=== PATIENT | male | born 1945 | race African-American/Black ===

== ENCOUNTER 2017-04-18 21:39 | Emergency (ER) | payer MEDICARE ==
[2017-04-19 00:09] LABS: Bilirubin Negative (Negative); Blood, Urine Negative (Negative); Glucose, Urine (Dipstick) Negative (Negative); Ketone, Urine Negative (Negative); Nitrite Negative (Negative); Protein, Urine (Dipstick) Negative (Neg-Trace); Urobilinogen 0.2 mg/dL (0.2-1.0)
== END 2017-04-19 01:29 ==
LOC: ERS 21:39
DX: R45.1 Restlessness and agitation (principal); R33.9 Retention of urine, unspecified; Z79.899 Other long term (current) drug therapy
CPT/HCPCS: 51702; 81003; 87086

== ENCOUNTER 2018-05-24 10:19 | Emergency (ER) | payer MEDICARE, MEDICAID ==
[2018-05-24 12:39] LABS: INR-International Normal Ratio 0.9; PTT 25.7 SEC (22.9-36.1); Prothrombin Time 12.5 SEC (12.0-14.7)
--- NOTE | 2018-05-24 12:40 | RAD ---
RADIOGRAPH CHEST 1 VIEW: HISTORY: Preoperative evaluation for 72-year-old male. FINDINGS: There are no air space densities, pulmonary edema, pneumothorax, or cardiomegaly. The lateral costop hrenic angles are sharp. IMPRESSION: No acute cardiopulmonary findings. oneil [] POS: LEOLA
--- NOTE | 2018-05-24 12:40 | RAD ---
AP PELVIS LEFT HIP 2 VIEWS: Date: 05/24/18 HISTORY: Fall, left hip pain. FINDINGS/IMPRESSION: There are postop changes and metallic hardware in the right proximal femur. There is suggestion of a fracture involving the left greater trochanter. POS: LEOLA
--- NOTE | 2018-05-24 12:41 | RAD ---
RADIOGRAPH LEFT WRIST 3 VIEWS: Date: 05/24/18 Time: 1124 hours HISTORY: 72-year-old male status post acute traumatic injury to the left hand from fall. FINDINGS: No displaced fracture is identified. There is diffuse osteopenia, which could mask a nondisplaced fra cture. Alignment is normal. If there is snuffbox tenderness that suggests an occult scaphoid fracture , then the general recommendation is immobilization and follow-up imaging in 5-10 days. Degenerative changes are minimal/mild. IMPRESSION: No fracture identified. POS: LEOLA
[2018-05-24 12:54] LABS: ALT (SGPT) 21 U/L (8-55); AST (SGOT) 50 U/L (5-34); Albumin 3.7 g/dL (3.4-4.8); Alcohol 234 mg/dL (Less than 10); Alkaline Phosphatase 42 U/L (40-150); Anion Gap 24 mmol/L (10-20); BUN (Urea Nitrogen) 10 mg/dL (8.4-25.7); Bilirubin, Total 0.5 mg/dL (0.2-1.2); Calc. Creatinine Clearance 0 mL/min (70-130); Calcium 8.8 mg/dL (7.8-10.44); Carbon Dioxide 19 mmol/L (23-31); Chloride 100 mmol/L (98-107); Estimated GFR-MDRD Greater than 90; Globulin 3.7 g/dL (2.4-3.5); Glucose 64 mg/dL (83-110); Potassium 4.1 mmol/L (3.5-5.1); Protein, Total 7.4 g/dL (5.8-8.1); Sodium 139 mmol/L (136-145)
[2018-05-24 12:55] LABS: #Lymphocytes 1.4 thou/uL (1.20-3.40); #Monocytes 0.3 thou/uL (0.11-0.59); #Neutrophils 4.4 thou/uL (1.40-6.50); %Basophils 0.5 % (0.0-1.0); %Eosinophils 0.7 % (0.0-10.0); %Lymphocytes 22.8 % (21.0-51.0); %Monocytes 5.5 % (0.0-10.0); %Neutrophils 70.6 % (42.0-75.0); Hemoglobin 12.1 g/dL (14.0-18.0); Mean Corpuscular HGB CONC 31.3 g/dL (32.0-36.0); Mean Corpuscular Hemoglobin 26.7 pg (27.0-31.0); Mean Corpuscular Volume 85.3 fL (78.0-98.0); Mean Platelet Volume 9.6 fL (7.4-10.4); Platelet Count 147 thou/uL (130-400); RBC Distribution Width 13.1 % (11.5-14.5); Red Blood Cell (RBC) Count 4.53 mill/uL (4.70-6.10); White Blood Cell (WBC) Count 6.2 thou/uL (4.8-10.8)
[2018-05-24] MEDS ORDERED: traMADol HCl 50 MG TAB ONE (13:50)
--- NOTE | 2018-05-24 14:26 | CT ---
CT PELVIS NONCONTRAST: Date: 05/24/18 HISTORY: 72-year-old male with traumatic left hip pain due to fall. FINDINGS: There is no acute fracture or dislocation. There is a Cisneros type dynamic compression screw fixatin g an old right intertrochanteric fracture. No high grade DJD of the bilateral hips or bilateral SI moriah ints. Urinary bladder is very distended, with the bladder dome extending slightly superior to the lev el of the umbilicus. No free fluid within the pelvic cavity. No extrapelvic hematoma. Diffuse osteope yessica. Disc bulges at L4-5 and L5-S1 without severe disc space narrowing. IMPRESSION: 1. No acute fracture. 2. Distended urinary bladder. 3. Dynamic compression screw fixating an old right intertrochanteric fracture. POS: LEOLA
== END 2018-05-24 13:58 | disposition home or self-care (01) ==
LOC: ERS 10:19
DX: S72.115A Nondisplaced fracture of greater trochanter of left femur, initial encounter for closed fracture (principal); J45.909 Unspecified asthma, uncomplicated; Z86.711 Personal history of pulmonary embolism; W18.30XA Fall on same level, unspecified, initial encounter
CPT/HCPCS: 36415; 71045; 72170; 72192; 80053; 80307; 85025; 85610; 85730; 86850; 86900; 86901; 93005

== ENCOUNTER 2019-10-12 13:34 | Emergency (ER) | payer MEDICAID, MEDICARE ==
[~2019-10-12 13:34] MED LIST: Iopamidol-370 76% 500 ML 1 ML ONE
[2019-10-12 14:15] LABS: #Eosinphils 0.2 thou/uL (0.0-0.7); #Lymphocytes 2.1 thou/uL (1.20-3.40); #Monocytes 0.4 thou/uL (0.11-0.59); #Neutrophils 3.5 thou/uL (1.40-6.50); %Basophils 0.7 % (0.0-1.0); %Eosinophils 3.6 % (0.0-10.0); %Lymphocytes 33.3 % (21.0-51.0); %Monocytes 6.5 % (0.0-10.0); %Neutrophils 55.8 % (42.0-75.0); Hemoglobin 12.9 g/dL (14.0-18.0); Mean Corpuscular HGB CONC 32.7 g/dL (32.0-36.0); Mean Corpuscular Volume 82.5 fL (78.0-98.0); Platelet Count 259 thou/uL (130-400); Red Blood Cell (RBC) Count 4.78 mill/uL (4.70-6.10); White Blood Cell (WBC) Count 6.3 thou/uL (4.8-10.8)
[2019-10-12 14:26] LABS: ALT (SGPT) 7 U/L (8-55); AST (SGOT) 18 U/L (5-34); Albumin 3.6 g/dL (3.4-4.8); Alkaline Phosphatase 122 U/L (40-110); Anion Gap 23 mmol/L (10-20); BUN (Urea Nitrogen) 18 mg/dL (8.4-25.7); Bilirubin, Total 0.6 mg/dL (0.2-1.2); Calc. Creatinine Clearance 0 mL/min (70-130); Calcium 9.5 mg/dL (7.8-10.44); Carbon Dioxide 19 mmol/L (23-31); Chloride 98 mmol/L (98-107); Estimated GFR-MDRD Greater than 90; Globulin 4.9 g/dL (2.4-3.5); Magnesium 1.8 mg/dL (1.6-2.6); Potassium 4.1 mmol/L (3.5-5.1); Protein, Total 8.5 g/dL (5.8-8.1); Sodium 136 mmol/L (136-145)
--- NOTE | 2019-10-12 14:33 | RAD ---
CHEST ONE VIEW: 10/12/19 HISTORY: Fall. COMPARISON: Radiograph 05/24/18. FINDINGS: Multiple old right sided rib fractures. Abnormal subtle opacity left lung base. Scarring in the right lung base. No acute displaced rib fracture is appreciated. No pneumothorax. No significant effusion. IMPRESSION: 1. Abnormal opacity in the left lung base is somewhat linear in appearance to reflect scarring f rom prior infection/infarction from patient's known PE in 2017. Follow-up radiographs recommended. 2. Old right sided rib fractures. 3. Dilated pulmonary artery suggesting pulmonary hypertension. POS: HOME
[2019-10-12 14:37] LABS: Glucose 58 mg/dL (83-110)
[2019-10-12] MEDS ORDERED: Dextrose 50% Abboject 50 ML SYRINGE ONE (14:38)
[2019-10-12 14:49] LABS: Base Excess-Venous -2.8 mmol/L (-2.0 to 3.0); CO2 Tension (PvCO2) 25.4 mmHg (40.0-50.0); Calcium, Ionized 0.97 mmol/L (See Comments:); Chloride 103 mmol/L (98-107); Hemoglobin - Calc 14.3 g/dL (14.0-18.0); Potassium 3.9 mmol/L (3.5-5.1); Sodium 134 mmol/L (138-145); T. Carbon Dioxide 19.8 mmol/L (22.0-28.0); vO2 Saturation-calc 73.6 % (60.0-85.0)
[2019-10-12 15:11] LABS: CKMB 1.6 ng/mL (0-6.6)
--- NOTE | 2019-10-12 15:41 | CT ---
EXAM: CT ANGIOGRAM OF THE HEAD INDICATION: Altered mental status. Patient fell 2 weeks ago. COMPARISON: Noncontrast head CT 02/03/2017 TECHNIQUE: CT angiogram of the head are performed in the axial plane. Three-dimensional reformatted i mages are submitted for interpretation. FINDINGS: NONCONTRAST HEAD CT: Stable remote right frontotemporal extra-axial hematoma. No significant mass effect or midline shift. Stable postsurgical changes in the right calvarium. No acute parenchymal hemorrhage or extra-axial hematoma. Stable encephalomalacia involving the left and right frontal lobes. Remainder of the cerebr um demonstrates preservation of cortical watkins-white white matter differentiation. POSTCONTRAST CT OF BRAIN: Pathologic enhancement: No pathologic enhancement the brain. CTA OF THE BRAIN: Intracranial internal carotid arteries:Symmetric enhancement and luminal diameter of the intracranial internal carotid arteries. There is atherosclerosis involving both cavernous segments without significant luminal narrowing. Note, incomplete evaluation of the cervical carotid arteries. There is atherosclerosis involving both distal common carotid arteries, carotid bifurcation and internal carotid arteries. Limited evaluation on this examination. No evidence of high-grade stenosis based on NASCET criteria. There is tortuosity of both cervical internal carotid arteries. Anterior circulation: Appropriate enhancement and luminal diameter of the A1 and M1 segments. Proxima l A2 segments and proximal MCA branches have appropriate enhancement and luminal diameter. Small focal 2-3 mm outpouching near the terminus of the left internal carotid artery, best demonstrated on sagittal image 47 and 48 may represent a small infundibulum versus a small aneurysm. Intracranial vertebral arteries: Appropriate enhancement and luminal diameter. Bilateral PICA artery origins have appropriate enhancement and luminal diameter. No aneurysm. Posterior circulation: Both vertebral arteries supply normal caliber basilar artery. Bilateral P1 seg ments have appropriate enhancement and luminal diameter. IMPRESSION: 1. No significant vascular occlusion at the level [place]. 2. Questionable infundibulum versus small aneurysm close to the terminus of the left internal carotid artery. Conventional angiography can be performed, nonemergent. 3. Atherosclerosis involving both cervical carotid arteries, incompletely evaluated. 4. Chronic right frontotemporal extra-axial hematoma. Transcribed Date/Time: 10/12/2019 5:40 PM
[2019-10-12 16:52] LABS: Bacteria/HPF 4+ HPF (None Seen); Bilirubin Negative (Negative); Blood, Urine 2+ (Negative); Clarity Extra Turbid (Clear); Glucose, Urine (Dipstick) Normal (Negative); Leukocyte 500 Leu/uL (Negative); Nitrite Negative (Negative); Protein, Urine (Dipstick) 30 mg/dL (Neg-Trace); Urobilinogen Normal mg/dL (Less than 2); WBC/HPF Greater than 50 HPF (0-3)
[2019-10-12] MEDS ORDERED: cefTRIAXone\\ROCEPHIN 2 GM VIAL ONE (17:23)
--- NOTE | 2019-10-12 18:01 | RAD ---
EXAM: LUMBAR SPINE THREE VIEWS: 10/12/19 HISTORY: Fall two weeks ago. Pain. FINDINGS: Five lumbar type vertebrae. Mild loss of vertebral body height along the superior end plate of L4. Th ere is an associated concavity. No significant retropulsion. Atherosclerosis of the aorta is identifi ed. Contrast opacifies the urinary bladder. IMPRESSION: Mild compression fracture involving the superior end plate of L4. POS: PPP
--- NOTE | 2019-10-12 18:11 | RAD ---
TWO VIEWS RIGHT HIP: 10/12/19 PROVIDED CLINICAL HISTORY: Fall. FINDINGS: Comparison 05/24/18. Postoperative changes ORIF right hip redemonstrated, without evidence for hardware loosening and migr ation. No evidence for acute fracture. Right hip joint space is preserved. Vascular calcifications ar e seen. Contrast material is noted within the urinary bladder. IMPRESSION: No evidence for an acute osseous abnormality. If there is persistent clinical concern, conservative m anagement and follow-up imaging advised. POS: SANIA
[2019-10-12 19:53] LABS: Troponin I 0.017 ng/mL (< 0.028)
== END 2019-10-12 20:33 ==
LOC: ERS 13:34
DX: S32.049A Unspecified fracture of fourth lumbar vertebra, initial encounter for closed fracture (principal); N39.0 Urinary tract infection, site not specified; R53.1 Weakness; J45.909 Unspecified asthma, uncomplicated; Z79.51 Long term (current) use of inhaled steroids; W19.XXXA Unspecified fall, initial encounter
CPT/HCPCS: 36415; 36416; 51701; 70496; 71045; 72100; 80053; 81003; 81015; 82140; 82330; 82553; 82803; 83735; 84443; 84484; 85025; 93005; 96365; 96375; J0696; Q9967

== ENCOUNTER 2020-04-02 19:22 | Inpatient (IN) | payer MEDICARE, OTHER ==
--- NOTE | 2020-04-02 20:36 | RAD ---
CHEST ONE VIEW: Indication: History of syncope Comparison: 10-12-2019 FINDINGS: Chronic lung changes are stable appearing. Heart size within normal limits. No pleural effusion or pn eumothorax is evident. Sheet artifact over shadow the lung apices. No acute osseous abnormality is ev ident. IMPRESSION: No definite acute abnormality. POS: BH
--- NOTE | 2020-04-02 20:48 | CT ---
CT BRAIN NONCONTRAST: DATE: 04/02/2020 HISTORY: 74-year-old male with altered mental status FINDINGS: There is no evidence of acute intra-axial or extra-axial hemorrhage. There is no midline shift or any other mass effect. There is a broad, thin right frontal chronic subdural hematoma.. There is no evidence of obstructive hydrocephalus. Calvarium is intact. There is diffuse brain parenchymal volume loss. There are low attenuation areas in the white matter. These are nonspecific, but in a patient of this age, they are probably chronic ischemic white matter changes due to microvascular atheroscler osis. There is a small to moderate-sized patchy region of encephalomalacia and gliosis involving the right supraorbital anterior inferior frontal lobe parenchyma. There is an old right parietal bone sara hole slightly posterior to the right coronal suture. No interval change overall since 10/12/2019. IMPRESSION: 1) No acute intracranial findings. 2) involutional changes and chronic ischemic white matter changes. 3) small right frontal chronic subdural hematoma containing multifocal calcifications. 4) evidence for old, traumatic injury to right anterior inferior frontal lobe.
[2020-04-02 21:23] LABS: #Lymphocytes 1.6 thou/uL (1.20-3.40); #Monocytes 0.6 thou/uL (0.11-0.59); #Neutrophils 7.3 thou/uL (1.40-6.50); %Basophils 0.3 % (0.0-1.0); %Eosinophils 0.5 % (0.0-10.0); %Lymphocytes 16.8 % (21.0-51.0); %Monocytes 5.9 % (0.0-10.0); %Neutrophils 76.5 % (42.0-75.0); Hemoglobin 13.2 g/dL (14.0-18.0); Mean Corpuscular HGB CONC 31.3 g/dL (32.0-36.0); Mean Corpuscular Hemoglobin 26.5 pg (27.0-31.0); Mean Corpuscular Volume 84.6 fL (78.0-98.0); Mean Platelet Volume 9.4 fL (7.4-10.4); Platelet Count 182 thou/uL (130-400); RBC Distribution Width 14.7 % (11.5-14.5); Red Blood Cell (RBC) Count 4.99 mill/uL (4.70-6.10); White Blood Cell (WBC) Count 9.6 thou/uL (4.8-10.8)
[2020-04-02 21:29] LABS: ALT (SGPT) 10 U/L (8-55); AST (SGOT) 26 U/L (5-34); Albumin 3.9 g/dL (3.4-4.8); Alkaline Phosphatase 54 U/L (40-110); Anion Gap 25 mmol/L (10-20); BUN (Urea Nitrogen) 13 mg/dL (8.4-25.7); Bilirubin, Total 0.4 mg/dL (0.2-1.2); Calc. Creatinine Clearance 0 mL/min (70-130); Calcium 8.4 mg/dL (7.8-10.44); Carbon Dioxide 13 mmol/L (23-31); Chloride 100 mmol/L (98-107); Estimated GFR-MDRD Greater than 90; Glucose 111 mg/dL (83-110); Potassium 4.6 mmol/L (3.5-5.1); Protein, Total 7.9 g/dL (5.8-8.1); Sodium 133 mmol/L (136-145)
[2020-04-02 21:56] LABS: CKMB 4.1 ng/mL (0-6.6)
[2020-04-03 00:11] LABS: Hemoglobin A1c 4.6 % (4.0-6.0)
--- NOTE | 2020-04-03 00:14 | PDOC.HHP ---
Hospitalist HPI - History of Present Illness syncope History of Present Illness: Mr. Pond is a 74 year-old male with a PMHx of COPD, chronic subdural hematoma, cerebral brain anuerysm s/p clip, R hip fracture, and remote PE who presented to the ED for syncopal episode. Pt's reports that the pt was sitting watching TV when all of a sudden he became very drowsy and unresponsive. EMS noted a blood sugar <40 and administered glucose. Repeat blood sugar 110. Family notes patient has been wetting the bed over the past week. Pt denies chest pain, SOB, or palpitations. Denies prodrome. Denies weakness or numbness. No history of syncope or similar events. Pt denies history of diabetes, but reports he has not seen his PCP in over a year. Workup in the ED revealed EKG with no ischemic changes, indeterminate troponin of 0.126, Na of 133, K of 4.6, BUN/Cr 13, 0.72. BIcarb 13. H/H 13.2/42.2, WBC 9.6. Patient received 250 ml of D10 by EMS. Vitals 136/85, 96, 20, 97.6, 95% on RA. Hospitalist ROS - Review of Systems Constitutional: denies: fever, chills, sweats, weakness, malaise, other Eyes: denies: pain, vision change, conjunctivae inflammation, eyelid inflammation, redness, other ENT: denies: ear pain, ear discharge, nose pain, nose discharge, nose congestion, mouth pain, mouth swelling, throat pain, throat swelling, other Respiratory: denies: cough, dry, shortness of breath, hemoptysis, SOB with excertion, pleuritic pain, sputum, wheezing, other Cardiovascular: denies: chest pain, palpitations, orthopnea, paroxysmal noc. dyspnea, edema, light headedness, other Gastrointestinal: denies: nausea, vomiting, abdominal pain, diarrhea, constipation, melena, hematochezia, other Genitourinary: reports: frequency, incontinence. denies: dysuria, hematuria, retention, other Musculoskeletal: denies: neck pain, shoulder pain, arm pain, back pain, hand pain, leg pain, foot pain, other Skin: denies: rash, lesions, elizabeth, bruising, other Neurological: denies: weakness, numbness, incoordination, change in speech, confusion, seizures, other - Medication Medications: Home medications include: Folic acid Advair inhaler Amlodipine Pantoprazole Dulcolax Patient unsure of medications. Will need to confirm medications with family in morning. NKDA Hospitalist History - Past Medical History Cardiac: reports: HTN Pulmonary: reports: asthma, COPD, pulmonary embolism Gastrointestinal: reports: Constipation, GERD - Past Surgical History Other Surgical History: cerebral aneurysm s/p clip R hip fx s/p fixation - Family History Family History: reports: no pertinent history - Social History Smoking Status: Current every day smoker Tobacco Type: cigarettes Alcohol: reports: Heavy Drugs: reports: none Living Situation: With Family - Exam General Appearance: NAD, awake alert, ill appearing General - other findings: Cachectic Eye: PERRL, anicteric sclera ENT: normocephalic atraumatic, no oropharyngeal lesions, dry oral mucosa Neck: supple, symmetric, no JVD, no thyromegaly, no lymphadenopathy, no carotid bruit Heart: RRR, no murmur, no gallops, no rubs, normal peripheral pulses Respiratory: CTAB, no wheezes, no rales, no ronchi, normal chest expansion, no tachypnea, normal percussion Gastrointestinal: soft, non-tender, non-distended, normal bowel sounds, no hepatomegaly, no splenomegaly, no bruit Extremities: no cyanosis, no clubbing, no edema Skin: no lesions, no rashes, tenting Neurological: cranial nerve grossly intact, normal sensation to touch, no weakness, no focal deficits, no new deficit Musculoskeletal: generalized weakness, diffuse muscle atrophy Psychiatric: normal affect, normal behavior, oriented to person, oriented to place Psychiatric - other findings: Not able to tell me the month or year Hospitalist Results - Labs Result Diagrams: 04/02/20 20:57 04/02/20 23:40 Lab results: WBC 9.6 thou/uL (4.8-10.8) 04/02/20 20:57 Hgb 13.2 g/dL (14.0-18.0) L 04/02/20 20:57 Hct 42.2 % (42.0-52.0) 04/02/20 20:57 MCV 84.6 fL (78.0-98.0) 04/02/20 20:57 Plt Count 182 thou/uL (130-400) 04/02/20 20:57 Neutrophils % 76.5 % (42.0-75.0) H 04/02/20 20:57 Sodium 133 mmol/L (136-145) L 04/02/20 20:57 Potassium 4.6 mmol/L (3.5-5.1) 04/02/20 20:57 Chloride 100 mmol/L (98-107) 04/02/20 20:57 Carbon Dioxide 13 mmol/L (23-31) L 04/02/20 20:57 BUN 13 mg/dL (8.4-25.7) 04/02/20 20:57 Creatinine 0.72 mg/dL (0.7-1.3) 04/02/20 20:57 Glucose 111 mg/dL (83-110) H 04/02/20 20:57 Calcium 8.4 mg/dL (7.8-10.44) 04/02/20 20:57 Total Bilirubin 0.4 mg/dL (0.2-1.2) 04/02/20 20:57 AST 26 U/L (5-34) 04/02/20 20:57 ALT 10 U/L (8-55) 04/02/20 20:57 Alkaline Phosphatase 54 U/L (40-110) 04/02/20 20:57 CK-MB (CK-2) 4.1 ng/mL (0-6.6) 04/02/20 20:57 Troponin I 0.126 ng/mL (< 0.028) H 04/02/20 20:57 Serum Total Protein 7.9 g/dL (5.8-8.1) 04/02/20 20:57 Albumin 3.9 g/dL (3.4-4.8) 04/02/20 20:57 Hospitalist H&P A/P - Problem (1) Syncope Code(s): R55 - SYNCOPE AND COLLAPSE Status: Acute (2) Hypoglycemia Code(s): E16.2 - HYPOGLYCEMIA, UNSPECIFIED Status: Acute (3) ETOH abuse Code(s): F10.10 - ALCOHOL ABUSE, UNCOMPLICATED Status: Acute (4) HTN (hypertension) Code(s): I10 - ESSENTIAL (PRIMARY) HYPERTENSION Status: Chronic Qualifiers: Hypertension type: essential hypertension Qualified Code(s): I10 - Essential (primary) hypertension - Plan Plan: Syncope: 74M hx of COPD, brain aneurysm s/p coil, chronic subdural presents after a witness syncopal episode at home. Pt hypoglycemic to <40 by EMS. Recovered with glucose. Pt denies prodrome and is unable to remember events leading up to syncopal episode. Troponin indeterminate at 0.126. EKG NSR. CXR negative. Head CT showed no acute changes, but stable chronic subdural hematoma. Pt reports inability to hold urine and increased frequency. WBC 9.6, afebrile. VSS. Lactic acid elevated at 3.7, question seizure. PLAN: -Telemetry -Mg, Ca, Phos, TSH -Drug screen -Q4 neuro checks -UA, repeat lactic -Orthostatics Hypoglycemia: Hypoglycemic to <40 found by EMS with syncopal episode. Mentation improved s/p glucose. Pt denies hx of diabetes, but has not seen PCP in years. Denies any recent illness, or new medications. Glucose improved to 111. HgA1c 4.6. Bicarbonate low at 13. Question alcoholic ketoacidosis. PLAN: -D50 PRN -Q2 glucose checks -LFTs, electrolytes, beta-hydroxyburyrate -TSH, cortisol, c-peptide Troponin elevation: Initial troponin 0.126, indeterminate range. Pt denies chest pain. EKG shows NSR with no ischemic changes. Pt denies history of cardiac disease. BUN/Cr 13/.072. Pt has chronic subdural hematoma so high risk for anticoagulation. PLAN: -Trend troponin -Telemetry -Monitor for chest pain Etoh abuse: Hx of etoh abuse. Pt reports he drinks 1/2 pint liquor daily. Last drink was yesterday. Denies history of withrawals, seizures or hospitalisations. PLAN: -ASE protocol -Mg, vitamin b12, thiamine -Folic acid Hypertension: Hx of HTN on amlodipine. Will hold in setting of syncope. COPD: Hx of COPD, not on home O2. Denies dyspnea. O2 saturation 95% on RA. Home advair inhaler. PLAN: -Duonebs prn -Monitor respiratory status CHF: Hx of CHF with last echo in 2017 showed EF of 35%. Lungs CLAB. CXR negative. Will repeat echo in setting of syncope. PLAN: -Echocardiogram DVT prophylaxis: c/d dt subdural hematoma FULL CODE Case discussed with attending physician, Dr. Bhakta.
[2020-04-03 00:17] LABS: Lactic Acid 3.7 mmol/L (0.5-2.2)
[2020-04-03 00:24] LABS: Anion Gap 23 mmol/L (10-20); BUN (Urea Nitrogen) 14 mg/dL (8.4-25.7); Calc. Creatinine Clearance 0 mL/min (70-130); Calcium 8.7 mg/dL (7.8-10.44); Carbon Dioxide 17 mmol/L (23-31); Chloride 99 mmol/L (98-107); Estimated GFR-MDRD Greater than 90; Glucose 79 mg/dL (83-110); Potassium 3.9 mmol/L (3.5-5.1); Sodium 135 mmol/L (136-145)
[2020-04-03 00:35] LABS: Acetaminophen Less than 6.0 mcg/mL (10.0-30.0); Alcohol 46 mg/dL (Less than 10); Salicylate Less than 8.0 mg/dL (15.0-30.0)
[2020-04-03] MEDS ORDERED: Ondansetron ODT 4 MG TAB SL PRN (01:00)
[2020-04-03] MEDS ORDERED: Acetaminophen 325 MG TAB PO PRN (01:00)
[2020-04-03] MEDS ORDERED: Ondansetron PF 4 MG/2 ML Vial IVP PRN (01:00)
[2020-04-03] MEDS ORDERED: Dextrose 5% in Water 1,000 ML IV PRN (01:07)
[2020-04-03] MEDS ORDERED: Dextrose 50% Abboject 50 ML SYRINGE SLOW IVP PRN (01:07)
[2020-04-03] MEDS ORDERED: Sodium Chloride 0.9% 1,000 ML IV SCH ×2 (01:45→10:08)
[2020-04-03 02:17] LABS: CKMB 3.8 ng/mL (0-6.6)
[2020-04-03 02:57] VITALS: BMI 17.6
[2020-04-03 05:03] LABS: Anion Gap 22 mmol/L (10-20); BUN (Urea Nitrogen) 17 mg/dL (8.4-25.7); Calc. Creatinine Clearance 66 mL/min (70-130); Calcium 8.3 mg/dL (7.8-10.44); Carbon Dioxide 18 mmol/L (23-31); Chloride 98 mmol/L (98-107); Estimated GFR-MDRD Greater than 90; Glucose 99 mg/dL (83-110); Magnesium 1.8 mg/dL (1.6-2.6); Potassium 5.4 mmol/L (3.5-5.1); Sodium 133 mmol/L (136-145)
[2020-04-03 05:04] LABS: ALT (SGPT) 10 U/L (8-55); AST (SGOT) 24 U/L (5-34); Albumin 3.7 g/dL (3.4-4.8); Alkaline Phosphatase 50 U/L (40-110); Bilirubin, Direct 0.3 mg/dL (0.1-0.3); Bilirubin, Total 0.7 mg/dL (0.2-1.2); Protein, Total 7.7 g/dL (5.8-8.1)
[2020-04-03 05:20] LABS: #Basophils 0.1 thou/uL (0.0-0.2); #Lymphocytes 1.4 thou/uL (1.20-3.40); #Monocytes 0.6 thou/uL (0.11-0.59); #Neutrophils 6.7 thou/uL (1.40-6.50); %Basophils 0.6 % (0.0-1.0); %Eosinophils 0.4 % (0.0-10.0); %Lymphocytes 16.1 % (21.0-51.0); %Monocytes 6.3 % (0.0-10.0); %Neutrophils 76.6 % (42.0-75.0); Hemoglobin 13.3 g/dL (14.0-18.0); Mean Corpuscular HGB CONC 32.1 g/dL (32.0-36.0); Mean Corpuscular Hemoglobin 26.9 pg (27.0-31.0); Mean Corpuscular Volume 83.7 fL (78.0-98.0); Mean Platelet Volume 10.4 fL (7.4-10.4); Platelet Count 162 thou/uL (130-400); RBC Distribution Width 14.8 % (11.5-14.5); Red Blood Cell (RBC) Count 4.95 mill/uL (4.70-6.10); White Blood Cell (WBC) Count 8.7 thou/uL (4.8-10.8)
[2020-04-03 05:26] LABS: CKMB 4.3 ng/mL (0-6.6)
[2020-04-03 05:59] LABS: Bacteria/HPF 3+ HPF (None Seen); Bilirubin Negative (Negative); Blood, Urine Negative (Negative); Clarity Clear (Clear); Glucose, Urine (Dipstick) Normal (Negative); Ketone, Urine 20 mg/dL (Negative); Leukocyte 250 Leu/uL (Negative); Nitrite Negative (Negative); Protein, Urine (Dipstick) Negative (Neg-Trace); RBC/HPF 0-3 HPF (0-3); Specific Gravity, Urine 1.011 (1.002-1.036); Squamous Epithelial 0-3 HPF (0-3); Urobilinogen Normal mg/dL (Less than 2)
[2020-04-03 06:00] LABS: Urine Culture Reflex Yes Yes
[2020-04-03 06:07] LABS: Amphetamine Not Detected (NotDetected); Barbiturates Screen Not Detected (NotDetected); Benzodiazepine Screen Not Detected (NotDetected); Cocaine Metabolite Screen Not Detected (NotDetected); Medtox Control Line Valid? VALID (VALID); Medtox Reader # READER 4; Methadone Not Detected (NotDetected); Methamphetamine Not Detected (NotDetected); Opiate Screen Not Detected (NotDetected); Oxycodone Screen Not Detected (NotDetected); Phencyclidine (PCP) Not Detected (NotDetected); THC/Cannabinoid Screen Not Detected (NotDetected); Tricyclic Screen Not Detected (NotDetected)
[2020-04-03 09:09] LABS: Lactic Acid 1.6 mmol/L (0.5-2.2)
[2020-04-03] MEDS: Thiamine 100 MG TAB PO SCH (09:09)
[2020-04-03] MEDS: Cyanocobalamin (Vitamin B-12) 1,000 MCG TAB PO SCH (09:09)
[2020-04-03 12:00] LABS: SARS-CoV-2 MS2 Positive; SARS-CoV-2 N Gene Negative; SARS-CoV-2 S Gene Negative; SARS-CoV-2 by NAA Not Detected (NotDetected); SARS-CoV-2 orf1ab Negative
--- NOTE | 2020-04-03 14:50 | PDOC.HOSPP ---
- Subjective Encounter Date: 04/03/20 Encounter Time: 09:00 Subjective: The patient states his blood sugar was low yesterday. He states he has had poor appetite, does not eat much. He denies abdominal pain, nausea or vomiting. He is not sure exactly why he is in the hospital. SPeech has evaluated the patient and patient was deemed not safe to eat or swallow any pills The patient states he drinks a pint of beer daily. - Objective Vital Signs & Weight: Vital Signs (12 hours) Temp Pulse Resp BP BP BP Pulse Ox 04/03/20 11:37 98.6 F 85 20 111/72 98 04/03/20 08:01 98.1 F 90 20 114/67 98 04/03/20 07:53 98.1 F 90 20 114/67 96 04/03/20 05:42 91 108/67 116/65 04/03/20 05:04 97.7 F 94 15 153/75 H 95 Weight Weight 126 lb 9.6 oz I&O: 04/02/20 04/03/20 04/04/20 06:59 06:59 06:59 Intake Total 250 800 Output Total 275 531 Balance -25 269 Result Diagrams: 04/03/20 04:35 04/03/20 04:35 Additional Labs: Accuchecks 04/03/20 04/03/20 04/03/20 10:51 08:54 06:51 POC Glucose 138 H 114 H 130 H 04/03/20 04/03/20 04/03/20 04:43 02:38 01:32 POC Glucose 117 H 86 83 04/02/20 19:33 POC Glucose 162 H Hospitalist ROS - Review of Systems Constitutional: denies: fever, chills - Medication Medications: Active Medications Generic Name Dose Route Start Last Admin Trade Name Freq PRN Reason Stop Dose Admin Cyanocobalamin 1,000 mcg 04/03/20 09:00 04/03/20 09:09 Cyanocobalamin (Vitamin B-12) 1,000 Mcg Tab PO 1,000 mcg DAILY CHERISE Administration Sodium Chloride 1,000 mls @ 75 mls/hr 04/03/20 10:08 04/03/20 10:42 Normal Saline 0.9% IV 04/03/20 15:04 1,000 mls .[id number] CHERISE Administration Thiamine HCl 100 mg 04/03/20 09:00 04/03/20 09:09 Thiamine 100 Mg Tab PO 100 mg DAILY CHERISE Administration - Exam General Appearance: NAD, awake alert Eye: PERRL, anicteric sclera ENT: normocephalic atraumatic, no oropharyngeal lesions Neck: no JVD Heart: RRR, no murmur, no gallops, no rubs Respiratory: CTAB, no wheezes, no rales, no ronchi Gastrointestinal: soft, non-tender, non-distended, normal bowel sounds Extremities: no cyanosis, no clubbing, no edema Skin: normal turgor, no lesions, no rashes Neurological: cranial nerve grossly intact, normal sensation to touch, no focal deficits, no new deficit Musculoskeletal: normal tone, normal strength, no muscle wasting Hosp A/P - Plan CT brain: old traumatic injury to right anterior inferior frontal lobe. Small right frontal chronic subdural hematoma containing multifocal calcifications Chest X ray: normal This is a 74 year old male with past medical history of alcoholism who presents with syncopal episode from hypoglycemia UTI - patient is receiving IV ceftriaxone. Urine culture is pending. Cannot switch to oral pills since cannot swallow Dysphagia - speech states patient failed swallow evaluation. Plan for modified MBS tomorrow Hypoglycemia - resolved, will change blood sugars to achs. C-peptide is pending Elevated troponin - likely type II HI. Downtrending. ECHO is pending Hyponatremia - sodium decreased from 135 to 133 with IV fluids. Serum osmolarity normal at 285 - will dc IV fluids. Possibly secondary to beer consumption - urine osmolarity pending Hyperkalemia - potassium 5.4 today . Check EKG - administered kayexelate Chronic subdural hematoma - noted on CT head. - continue with PT Dispo: f/u urine culture, PT, MBS tomorrow
[2020-04-03 21:03] LABS: Anion Gap 12 mmol/L (10-20); BUN (Urea Nitrogen) 16 mg/dL (8.4-25.7); Calc. Creatinine Clearance 62 mL/min (70-130); Calcium 8.4 mg/dL (7.8-10.44); Carbon Dioxide 26 mmol/L (23-31); Chloride 102 mmol/L (98-107); Estimated GFR-MDRD Greater than 90; Glucose 120 mg/dL (83-110); Sodium 136 mmol/L (136-145)
[2020-04-03] MEDS: Acetaminophen 325 MG Suppository PR PRN (22:12)
[2020-04-04] MEDS: Thiamine 100 MG TAB PO SCH (10:01)
[2020-04-04] MEDS: Cyanocobalamin (Vitamin B-12) 1,000 MCG TAB PO SCH (10:01)
[2020-04-04] MEDS ORDERED: cefTRIAXone\\ROCEPHIN 1 GM in Sodium Chloride 0.9% 100 ML IVPB SCH (10:30)
[2020-04-04] MEDS ORDERED: cefTRIAXone Sodium 1,000 MG in Syringe 0 ML IVPB SCH (10:30)
[2020-04-04] MEDS: Acetaminophen 325 MG Suppository PR PRN (11:39)
[2020-04-04] MEDS: Vancomycin 1 GM in Premix Bag 1 BAG IVPB SCH ×2 (12:12→23:34)
[2020-04-04] MEDS ORDERED: Tamsulosin HCl 0.4 MG CAP PO SCH (13:45)
--- NOTE | 2020-04-04 14:46 | RAD ---
EXAM: XR Ba Swallow W/Speech Therap PROVIDED CLINICAL HISTORY: Dysphagia, unspecified. Feeding difficulties. COMPARISON: None FINDINGS: This examination was performed in conjunction with speech pathology. Varying consistencies of barium were administered during the exam including barium soaked cracker. Patient demonstrates difficulty in formation of bolus into the posterior pharynx. There is significant pooling within the vallecula a nd piriform sinuses with all consistencies. Episodes of trace aspiration were seen with thin liquid barium . IMPRESSION: Episode of trace aspiration with thin liquid barium. Significant pooling within the vallecula and piriform sinuses prior to initiation of swallowing mecha nism.
--- NOTE | 2020-04-04 16:13 | EKG ---
Test Reason : Blood Pressure : / mmHG Vent. Rate : 090 BPM Atrial Rate : 090 BPM P-R Int : 134 ms QRS Dur : 086 ms QT Int : 486 ms P-R-T Axes : 078 -85 -72 degrees QTc Int : 594 ms Normal sinus rhythm Left axis deviation Inferior infarct , age undetermined cannot be excluded T wave abnormality, consider inferior ischemia Prolonged QT Abnormal ECG Confirmed by JUANCARLOS SALCIDO ([id number]) on 04/04/2020 4:13:10 PM Referred By: CLARKE Confirmed By:JUANCARLOS SALCIDO
--- NOTE | 2020-04-04 18:53 | PDOC.HOSPP ---
- Subjective Encounter Date: 04/04/20 Encounter Time: 08:00 Subjective: The patient still has been unable to urinate. He does complain of some burning occasionally as well. He was straight cath yesterday . Today bladder scan showed only 75 ml. Patient has had trouble swallowing. MBS done today showed significant aspiration The patient states he refused edwards catheter placement because he urinated some on his own. Per relative, patient has history of prostate problems altho patient doesn't recall this. He was reportedly on flomax in the past - Objective Vital Signs & Weight: Vital Signs (12 hours) Temp Pulse Pulse Pulse Resp BP BP 04/04/20 15:39 97.5 F L 78 8 L 04/04/20 11:14 81 85 111/62 123/65 04/04/20 07:29 97.7 F 78 17 BP Pulse Ox 04/04/20 15:39 114/71 97 04/04/20 11:14 04/04/20 07:29 139/92 H 96 Weight Admit Weight 126 lb 9.6 oz Weight 126 lb 9.6 oz I&O: 04/03/20 04/04/20 04/05/20 06:59 06:59 06:59 Intake Total 250 800 240 Output Total 275 531 Balance -25 269 240 Result Diagrams: 04/03/20 04:35 04/03/20 20:38 Additional Labs: Accuchecks 04/04/20 04/04/20 04/04/20 16:42 14:07 05:47 POC Glucose 89 105 H 95 04/03/20 20:56 POC Glucose 123 H Hospitalist ROS - Review of Systems Constitutional: denies: fever, chills - Medication Medications: Active Medications Generic Name Dose Route Start Last Admin Trade Name Freq PRN Reason Stop Dose Admin Acetaminophen 325 mg 04/03/20 20:25 04/04/20 11:39 Acetaminophen 325 Mg Suppository TX 325 mg Q4H PRN Administration Headache/Fever or Pain Cyanocobalamin 1,000 mcg 04/03/20 09:00 04/04/20 10:01 Cyanocobalamin (Vitamin B-12) 1,000 Mcg Tab PO Not Given DAILY CHERISE Vancomycin HCl 1 gm/ Device 200 mls @ 200 mls/hr 04/04/20 11:00 04/04/20 12:12 IVPB 200 mls Q12H CHERISE Administration Ceftriaxone Sodium 1 gm/ 100 mls @ 200 mls/hr 04/04/20 10:30 04/04/20 11:18 Sodium Chloride IVPB 100 mls Q24HR CHERISE Administration Thiamine HCl 100 mg 04/03/20 09:00 04/04/20 10:01 Thiamine 100 Mg Tab PO Not Given DAILY CHERISE - Exam General Appearance: NAD, awake alert Eye: PERRL, anicteric sclera ENT: normocephalic atraumatic, no oropharyngeal lesions Neck: supple, symmetric, no JVD Heart: RRR, no murmur, no gallops, no rubs Respiratory: CTAB, no wheezes, no rales, no ronchi Gastrointestinal: soft, non-tender, non-distended, normal bowel sounds Extremities: no cyanosis, no clubbing, no edema Skin: normal turgor, no lesions, no rashes Neurological: cranial nerve grossly intact, normal sensation to touch, no focal deficits, no new deficit Hosp A/P - Plan CT brain: old traumatic injury to right anterior inferior frontal lobe. Small right frontal chronic subdural hematoma containing multifocal calcifications Chest X ray: normal MBS: trace aspiration with thin liquid barium. Significant pooling within the vallecula and piriform sinus This is a 74 year old male with past medical history of alcoholism who presents with syncopal episode from hypoglycemia #UTI #Urinary retention - Urine culture shows 100,000 gram positive cocci - started IV vanc and ceftriaxone, will f/u final culture results Dysphagia - MBS showed aspiration. Diet per speech recommendations Hypoglycemia - resolved, possiblyi from poor po intake vs alcohol use - c peptide was low. HbA1C normal, so no signs of diabetes Elevated troponin - likely type II MD. Downtrending. ECHO was normal Hyponatremia - resolved, sodium up to 136. Likely from beer consumption Hyperkalemia - resolved Chronic subdural hematoma - noted on CT head. - no neuro deficits currently Physical deconditioning - PT evaluated, recommending rehab. Will place case management consult Dispo: f/u urine culture. Likely needs placement
--- NOTE | 2020-04-04 19:00 | PDOC.EVN ---
Event Note - Event Note Event Note: Palliative discussed changing patient to a DNR, will switch code status
--- NOTE | 2020-04-04 20:40 | PDOC.EVN ---
Event Note - Event Note Event Note: Spoke to patient's daughter who requested MRI since patient did not have swallowing difficulties three days ago. He did have a few episodes of slurred speech a few days ago so she would like stroke to be ruled out
[2020-04-04] MEDS ORDERED: Sodium Chloride 0.9% 500 ML IV SCH (21:00)
[2020-04-05] MEDS ORDERED: Amoxicillin/Potassium Clav 875 MG TAB PO SCH ×2 (09:38→09:45)
[2020-04-05] MEDS: Tamsulosin HCl 0.4 MG CAP PO SCH (10:00)
[2020-04-05] MEDS: Cyanocobalamin (Vitamin B-12) 1,000 MCG TAB PO SCH (10:00)
[2020-04-05] MEDS: Thiamine 100 MG TAB PO SCH (10:00)
[2020-04-05] MEDS ORDERED: Acetaminophen 325 MG TAB PO PRN (10:38)
--- NOTE | 2020-04-05 14:12 | MRI ---
EXAM: MRI of the brain without contrast HISTORY: Transient slurred speech COMPARISON: CT brain 04/02/2020 TECHNIQUE: Multiplanar multisequence MR images were obtained of the brain without IV contrast. FINDINGS: Scattered foci of high T2/FLAIR signal in the subcortical and periventricular white matter are likely secondary to small vessel ischemic disease. There appears to be encephalomalacia in the right frontal lobe. There small areas of susceptibility artifact in the right frontal, right parietal, and left occipital regions which may represent small areas of hemosiderin deposition. No restricted diffusion. No hydronephrosis. There is a small extra-axial fluid collection seen along the right frontal and parietal convexity con taining areas of susceptibility artifact which likely represent calcifications. No acute extra-axial fluid collection or intracranial hemorrhage. The expected flow voids are present. Corpus callosum, pituitary, and craniocervical junction are within normal limits. The calvarium and overlying soft tissues are unremarkable. The paranasal sinuses and mastoid air cells are well aerated. IMPRESSION: 1. No evidence of acute intracranial abnormality. 2. Chronic right subdural extra-axial fluid collection
--- NOTE | 2020-04-05 18:51 | PDOC.HOSPP ---
- Subjective Encounter Date: 04/05/20 Encounter Time: 08:00 Subjective: The patient is doing well with no complaints. He states he was able to urinate today. He denies dysuria. He is agreeable to go to rehab after this. He is eating diet with risk of aspiration - Objective Vital Signs & Weight: Vital Signs (12 hours) Temp Pulse Resp BP Pulse Ox 04/05/20 16:00 97.5 F L 88 18 124/64 98 04/05/20 12:00 97.5 F L 82 16 115/57 L 95 04/05/20 07:29 97.6 F 70 14 127/75 96 Weight Admit Weight 126 lb 9.6 oz Weight 126 lb 9.6 oz I&O: 04/04/20 04/05/20 04/06/20 06:59 06:59 06:59 Intake Total 800 496 600 Output Total 531 125 Balance 269 496 475 Result Diagrams: 04/03/20 04:35 04/03/20 20:38 Additional Labs: Accuchecks 04/05/20 04/05/20 04/05/20 17:07 11:07 05:48 POC Glucose 108 H 86 100 04/04/20 04/04/20 20:58 10:49 POC Glucose 140 H 94 Hospitalist ROS - Review of Systems Constitutional: denies: fever, chills - Medication Medications: Active Medications Generic Name Dose Route Start Last Admin Trade Name Freq PRN Reason Stop Dose Admin Acetaminophen 325 mg 04/03/20 20:25 04/04/20 11:39 Acetaminophen 325 Mg Suppository IA 325 mg Q4H PRN Administration Headache/Fever or Pain Cyanocobalamin 1,000 mcg 04/03/20 09:00 04/05/20 10:00 Cyanocobalamin (Vitamin B-12) 1,000 Mcg Tab PO 1,000 mcg DAILY CHERISE Administration Tamsulosin HCl 0.4 mg 04/05/20 09:00 04/05/20 10:00 Tamsulosin Hcl 0.4 Mg Cap PO 0.4 mg DAILY CHERISE Administration Thiamine HCl 100 mg 04/03/20 09:00 04/05/20 10:00 Thiamine 100 Mg Tab PO 100 mg DAILY CHERISE Administration - Exam General Appearance: NAD, awake alert Eye: PERRL, anicteric sclera ENT: normocephalic atraumatic, no oropharyngeal lesions Neck: no JVD Heart: RRR, no murmur, no gallops, no rubs Respiratory: CTAB, no wheezes, no rales, no ronchi Gastrointestinal: soft, non-tender, non-distended, normal bowel sounds Extremities: no cyanosis, no clubbing, no edema Skin: normal turgor, no lesions, no rashes Neurological: cranial nerve grossly intact, normal sensation to touch, no focal deficits, no new deficit Musculoskeletal: normal tone, normal strength, no muscle wasting Psychiatric: normal affect, normal behavior, A&O x 3, oriented to person Hosp A/P - Plan CT brain: old traumatic injury to right anterior inferior frontal lobe. Small right frontal chronic subdural hematoma containing multifocal calcifications Chest X ray: normal MBS: trace aspiration with thin liquid barium. Significant pooling within the vallecula and piriform sinus MRI brain: no stroke This is a 74 year old male with past medical history of alcoholism who presents with syncopal episode from hypoglycemia #UTI #Urinary retention - Urine culture shows E faecalis. D/c IV vanc and ceftriaxone, switch to oral augmentin Dysphagia - MBS showed aspiration. Diet per speech recommendations. MRi brain showed no stroke Hypoglycemia - resolved, possiblyi from poor po intake vs alcohol use - c peptide was low. HbA1C normal, so no signs of diabetes Elevated troponin - likely type II AR. Downtrending. ECHO was normal Hyponatremia- resolved Hyperkalemia - resolved Chronic subdural hematoma - noted on CT head. - no neuro deficits currently Physical deconditioning - PT evaluated, recommending rehab. Case management consulted Dispo: pending placement
[2020-04-05] MEDS: Amoxicillin/Potassium Clav 875 MG TAB PO SCH (22:06)
[2020-04-06] MEDS: Tamsulosin HCl 0.4 MG CAP PO SCH (08:25)
[2020-04-06] MEDS: Cyanocobalamin (Vitamin B-12) 1,000 MCG TAB PO SCH (08:25)
[2020-04-06] MEDS: Thiamine 100 MG TAB PO SCH (08:25)
[2020-04-06] MEDS: Amoxicillin/Potassium Clav 875 MG TAB PO SCH ×2 (08:25→20:46)
--- NOTE | 2020-04-06 16:34 | PDOC.HOSPP ---
- Subjective Encounter Date: 04/06/20 Encounter Time: 08:00 Subjective: The patient has no complaints. He is urinating well. NO dysuria. He is agreeable to go to rehab. Awaiting authorization - Objective Vital Signs & Weight: Vital Signs (12 hours) Temp Pulse Resp BP Pulse Ox 04/06/20 14:42 97.5 F L 89 16 117/58 L 95 04/06/20 11:23 97.5 F L 85 18 102/56 L 98 04/06/20 07:48 97.5 F L 76 18 148/90 H 96 Weight Admit Weight 126 lb 9.6 oz Weight 126 lb 9.6 oz I&O: 04/05/20 04/06/20 04/07/20 06:59 06:59 06:59 Intake Total 496 720 Output Total 125 Balance 496 595 Result Diagrams: 04/03/20 04:35 04/03/20 20:38 Additional Labs: Accuchecks 04/06/20 04/06/20 04/05/20 10:39 05:49 21:28 POC Glucose 116 H 94 110 H 04/05/20 17:07 POC Glucose 108 H Hospitalist ROS - Review of Systems Constitutional: denies: fever, chills - Medication Medications: Active Medications Generic Name Dose Route Start Last Admin Trade Name Silver PRN Reason Stop Dose Admin Acetaminophen 325 mg 04/03/20 20:25 04/04/20 11:39 Acetaminophen 325 Mg Suppository TN 325 mg Q4H PRN Administration Headache/Fever or Pain Amoxicillin/Clavulanate Potassium 875 mg 04/05/20 21:00 04/06/20 08:25 Amoxicillin/Potassium Clav 875 Mg Tab PO 875 mg Q12HR CHERISE Administration Cyanocobalamin 1,000 mcg 04/03/20 09:00 04/06/20 08:25 Cyanocobalamin (Vitamin B-12) 1,000 Mcg Tab PO 1,000 mcg DAILY CHERISE Administration Tamsulosin HCl 0.4 mg 04/05/20 09:00 04/06/20 08:25 Tamsulosin Hcl 0.4 Mg Cap PO 0.4 mg DAILY CHERISE Administration Thiamine HCl 100 mg 04/03/20 09:00 04/06/20 08:25 Thiamine 100 Mg Tab PO 100 mg DAILY CHERISE Administration - Exam General Appearance: NAD, awake alert General - other findings: appears malnourished Eye: PERRL, anicteric sclera ENT: normocephalic atraumatic, no oropharyngeal lesions Neck: no JVD Heart: RRR, no murmur, no gallops, no rubs Respiratory: CTAB, no wheezes, no rales, no ronchi Gastrointestinal: soft, non-tender, non-distended, normal bowel sounds Extremities: no cyanosis, no clubbing, no edema Skin: normal turgor, no lesions, no rashes Hosp A/P - Plan CT brain: old traumatic injury to right anterior inferior frontal lobe. Small right frontal chronic subdural hematoma containing multifocal calcifications Chest X ray: normal MBS: trace aspiration with thin liquid barium. Significant pooling within the vallecula and piriform sinus MRI brain: no stroke This is a 74 year old male with past medical history of alcoholism who presents with syncopal episode from hypoglycemia #UTI #Urinary retention - Urine culture shows E faecalis. Continue augmentin Dysphagia - MBS showed aspiration. Diet per speech recommendations. MRi brain showed no stroke Hypoglycemia - resolved, possibly from poor po intake vs alcohol use - c peptide was low. HbA1C normal, so no signs of diabetes Elevated troponin- likely type II LA. ECHO was normal Hyponatremia- resolved Hyperkalemia - resolved Chronic subdural hematoma - noted on CT head. - no neuro deficits currently Physical deconditioning - PT evaluated, recommending rehab. Case management consulted Dispo: pending placement
[2020-04-07 04:52] LABS: Hemoglobin 10.7 g/dL (14.0-18.0); Mean Corpuscular HGB CONC 31.9 g/dL (32.0-36.0); Mean Corpuscular Hemoglobin 27.4 pg (27.0-31.0); Mean Platelet Volume 10.1 fL (7.4-10.4); Platelet Count 183 thou/uL (130-400); RBC Distribution Width 14.6 % (11.5-14.5); Red Blood Cell (RBC) Count 3.92 mill/uL (4.70-6.10); White Blood Cell (WBC) Count 4.5 thou/uL (4.8-10.8)
[2020-04-07 05:14] LABS: ALT (SGPT) Less than 7 U/L (8-55); AST (SGOT) 13 U/L (5-34); Albumin 3.1 g/dL (3.4-4.8); Alkaline Phosphatase 48 U/L (40-110); Anion Gap 12 mmol/L (10-20); BUN (Urea Nitrogen) 20 mg/dL (8.4-25.7); Bilirubin, Total 0.4 mg/dL (0.2-1.2); Calc. Creatinine Clearance 71 mL/min (70-130); Calcium 8.7 mg/dL (7.8-10.44); Carbon Dioxide 26 mmol/L (23-31); Chloride 107 mmol/L (98-107); Estimated GFR-MDRD Greater than 90; Globulin 3.2 g/dL (2.4-3.5); Glucose 90 mg/dL (83-110); Iron 29 ug/dL (65-175); Iron Binding Capacity, Total 163 mcg/dL (261-462); Protein, Total 6.3 g/dL (5.8-8.1); Sodium 141 mmol/L (136-145)
[2020-04-07] MEDS: Cyanocobalamin (Vitamin B-12) 1,000 MCG TAB PO SCH (09:22)
[2020-04-07] MEDS: Amoxicillin/Potassium Clav 875 MG TAB PO SCH (09:22)
[2020-04-07] MEDS: Thiamine 100 MG TAB PO SCH (09:22)
[2020-04-07] MEDS: Tamsulosin HCl 0.4 MG CAP PO SCH (09:22)
[2020-04-07] MEDS ORDERED: PROVENTIL INHALER 6.7 G (200 INHALATIONS) INH PRN (13:10)
[2020-04-07 15:34] VITALS: TEMP 97.9
[2020-04-07 16:28] VITALS: BP 137/88
--- NOTE | 2020-04-10 06:35 | DIS ---
DATE OF ADMISSION: 04/03/2020 DATE OF DISCHARGE: 04/07/2020 DISCHARGE DIAGNOSES: 1. Hypoglycemia likely secondary to poor oral intake versus alcoholism. 2. Urinary retention secondary to benign prostatic hypertrophy and Enterococcus faecalis urinary tract infection. 3. Elevated troponin likely secondary to type 2 [id number] myocardial infarction. 4. Hyponatremia. 5. Hyperkalemia. 6. Dysphagia. 7. Chronic subdural hematoma. BRIEF HISTORY OF PRESENT ILLNESS: This is a 74-year-old male with a past medical history of chronic subdural hematoma, cerebral brain aneurysm, remote PE, who presented to the emergency room with drowsiness and unresponsiveness. The patient's blood sugar was less than 40 and glucose was administered. Patient and family stated that the patient has been urinating in his bed for the past 1 week. His EKG showed no ischemic changes. Troponin was 0.126. Sodium was 133. The patient was given D10 by EMS, admitted to the hospital for further workup. HOSPITAL COURSE: Syncope likely secondary to hypoglycemia: The patient's blood sugars improved after administration of dextrose. C-peptide was low. The patient's serum alcohol level was high at 46. His beta-hydroxybutyrate was high. Hemoglobin A1c was 4.6. Echocardiogram showed no abnormalities. Troponins were indeterminate. The patient has been ambulating with PT and no dizziness or lightheadedness. Alcohol possibly contributed to his hypoglycemia as well as poor oral intake. Urinary retention secondary to UTI and BPH: The patient was having persistent urinary retention of over 500 mL. He did require straight catheterization x2. Urine culture grew 100,000 E faecalis. He was started on IV ceftriaxone, then was switched to oral Augmentin. He was started on Flomax. Thereafter, the patient has been urinating adequately. He will continue antibiotics on discharge to complete a seven day course. Dysphagia: The patient was noted to aspirate with textures of food. Modified MBS showed aspiration. The patient has been placed on a heart healthy diet with pureed texture. MRI of the brain showed no stroke. Hyponatremia/hyperkalemia: The patient has sodium of 133 on admission which improved to 141 after receiving some IV fluids. Hyperkalemia resolved after administration of Kayexalate. Potassium at the time of discharge was 4.0. Chronic subdural hematoma: This was noted on CT scan of the head. MRI of the brain confirmed this as well. Consider outpatient followup. DISCHARGE PHYSICAL EXAMINATION: VITAL SIGNS: Temperature 98, heart rate 78, respiratory rate 17, O2 saturation 100% on room air, blood pressure 132/70. GENERAL: Patient underweight with a BMI of 17. He is alert, awake, and oriented x3. CVS: Regular rate and rhythm with no murmurs, rubs, or gallops. LUNGS: Clear to auscultation bilaterally. ABDOMEN: Positive bowel sounds, soft, nontender, nondistended. EXTREMITIES: No significant edema. PERTINENT LABORATORY DATA: CBC, 04/07: White count 4.5, hemoglobin 10.7, hematocrit 32.7, platelet count 183. BMP, 04/07: Normal. Iron panel, 04/07: Ferritin 561, iron 29, iron sat 18, TIBC 163. LFTs, 04/07: Normal. TSH, 04/02: 0.67. Cortisol, 04/03: 18.90. UA, 04/03: Shows 20 ketones, 250 leukocyte esterase, 11 to 20 white cells. Urine osmolarity, 04/03: 459 and 260. U tox, 04/03: Negative. Plasma alcohol level, 04/02: 46. Beta-hydroxybutyrate, 04/02: 3.81. COVID PCR, 04/02: Negative. IMAGING: CT brain, 04/02: No acute intracranial findings. Small right frontal chronic subdural hematoma containing multifocal calcifications. Evidence for old traumatic injury to the right anterior inferior frontal lobe. Chest x-ray, 04/02: No acute abnormality. MRI brain, 04/05: Chronic right subdural extra-axial fluid collection. No acute abnormality. Echo, 04/04: EF 55%. No abnormalities. DISCHARGE CONDITION: Stable. ACTIVITY: As tolerated. DIET: Heart healthy diet with pureed texture with diet with risks of aspiration. DISCHARGE MEDICATIONS: 1. Augmentin 875 mg p.o. q.12 hours. 2. Flomax 0.4 mg p.o. daily. 3. Thiamine 100 mg p.o. daily. DISCHARGE INSTRUCTIONS: The patient should follow up with PCP in a week. Continue Augmentin for 4 more days. Consider outpatient followup of subdural hematoma. Job ID: [id number] MTDD
--- NOTE | 2020-04-12 16:28 | EKG ---
Test Reason : Blood Pressure : / mmHG Vent. Rate : 093 BPM Atrial Rate : 093 BPM P-R Int : 152 ms QRS Dur : 090 ms QT Int : 426 ms P-R-T Axes : 086 -84 -57 degrees QTc Int : 529 ms Sinus rhythm with marked sinus arrhythmia Left axis deviation Inferior infarct , age undetermined Prolonged QT Abnormal ECG Confirmed by FANG DELEON DO ([id number]), online editor VIVIENNE SAUCEDO ([id number] on 04/12/2020 4:27:52 PM Referred By: Confirmed By:FANG DELEON DO
== END 2020-04-07 18:42 | DRG 640 ==
LOC: ERS 19:22 → 2SE 04-03 00:55 → OBSVTOIN 04-03 14:50
PROVIDERS: ADMIT Family Medicine; ATTEND Family Medicine
DX: E16.2 Hypoglycemia, unspecified (principal); I62.03 Nontraumatic chronic subdural hemorrhage; I21.A1 Myocardial infarction type 2; N39.0 Urinary tract infection, site not specified; E87.1 Hypo-osmolality and hyponatremia; Z66 Do not resuscitate; Z20.828 Contact with and (suspected) exposure to other viral communicable diseases; J44.9 Chronic obstructive pulmonary disease, unspecified; K21.9 Gastro-esophageal reflux disease without esophagitis; F17.210 Nicotine dependence, cigarettes, uncomplicated; F10.10 Alcohol abuse, uncomplicated; I50.9 Heart failure, unspecified; I11.0 Hypertensive heart disease with heart failure; R13.10 Dysphagia, unspecified; E87.5 Hyperkalemia; N40.1 Benign prostatic hyperplasia with lower urinary tract symptoms; R33.8 Other retention of urine; B95.2 Enterococcus as the cause of diseases classified elsewhere; B96.89 Other specified bacterial agents as the cause of diseases classified elsewhere; R40.2362 Coma scale, best motor response, obeys commands, at arrival to emergency department; R40.2142 Coma scale, eyes open, spontaneous, at arrival to emergency department; R40.2252 Coma scale, best verbal response, oriented, at arrival to emergency department; Y90.2 Blood alcohol level of 40-59 mg/100 ml; Z79.899 Other long term (current) drug therapy; Z86.711 Personal history of pulmonary embolism
CPT/HCPCS: 36415; 36416; 36600; 51701; 51798; 70450; 70551; 71045; 74230; 80048; 80053; 80076; 80306; 80307; 81001; 81003; 82010; 82533; 82553; 82728; 83036; 83540; 83550; 83605; 83735; 83930; 83935; 84443; 84484; 84681; 85025; 85027; 87077; 87086; 87186; 87635; 93005; 93010; 93306; 94664; 96374; G0378; J0696; J2405; J3370; J3490; Q0162; U0003

== ENCOUNTER 2020-06-04 11:38 | Inpatient (IN) | payer MEDICARE ==
[2020-06-04 12:36] LABS: Prothrombin Time 13.8 sec (12.0-14.7)
[2020-06-04 12:37] LABS: PTT 28.5 sec (22.9-36.1)
[2020-06-04 12:51] LABS: ALT (SGPT) 8 U/L (8-55); AST (SGOT) 32 U/L (5-34); Albumin 3.5 g/dL (3.4-4.8); Alkaline Phosphatase 56 U/L (40-110); Anion Gap 23 mmol/L (10-20); BUN (Urea Nitrogen) 11 mg/dL (8.4-25.7); Bilirubin, Total 0.3 mg/dL (0.2-1.2); CK (CPK) 87 U/L (30-200); Calc. Creatinine Clearance 0 mL/min (70-130); Calcium 8.6 mg/dL (7.8-10.44); Carbon Dioxide 12 mmol/L (23-31); Chloride 99 mmol/L (98-107); Globulin 4.5 g/dL (2.4-3.5); Glucose 63 mg/dL (83-110); Lipase 46 U/L (8-78); Magnesium 1.7 mg/dL (1.6-2.6); Potassium 4.2 mmol/L (3.5-5.1); Sodium 130 mmol/L (136-145)
[2020-06-04 13:21] LABS: #Eosinphils 0.1 thou/uL (0.0-0.7); #Lymphocytes 1.8 thou/uL (1.20-3.40); #Monocytes 0.3 thou/uL (0.11-0.59); #Neutrophils 2.4 thou/uL (1.40-6.50); %Basophils 0.5 % (0.0-1.0); %Lymphocytes 38.8 % (21.0-51.0); %Neutrophils 51.6 % (42.0-75.0); Hemoglobin 13.4 g/dL (14.0-18.0); Mean Corpuscular HGB CONC 31.9 g/dL (32.0-36.0); Mean Corpuscular Hemoglobin 26.2 pg (27.0-31.0); Mean Corpuscular Volume 82.3 fL (78.0-98.0); Platelet Count 170 thou/uL (130-400); RBC Distribution Width 13.7 % (11.5-14.5); Red Blood Cell (RBC) Count 5.12 mill/uL (4.70-6.10); White Blood Cell (WBC) Count 4.6 thou/uL (4.8-10.8)
[2020-06-04] MEDS ORDERED: Dextrose 50% Abboject 50 ML SYRINGE ONE (13:21)
--- NOTE | 2020-06-04 13:31 | RAD ---
PORTABLE CHEST 1 VIEW: Date: 06/04/2020 Time: 1158 hours HISTORY: Altered mental status. Low blood sugar. COMPARISON: 04/02/2020. FINDINGS: The heart size is normal. The aorta is tortuous. No lobar consolidation, pneumothoraces, or pleural e ffusions are seen. IMPRESSION: No acute process. POS: PILLO
[2020-06-04 13:36] LABS: Acetaminophen Less than 6.0 mcg/mL (10.0-30.0); Alcohol 20 mg/dL (Less than 10); Salicylate Less than 8.0 mg/dL (15.0-30.0)
[2020-06-04] MEDS ORDERED: Cefepime 2 GM VIAL ONE (13:44)
[2020-06-04] MEDS ORDERED: Vancomycin 1 GM/200 ML BAG ONE (13:47)
[2020-06-04 13:59] LABS: CKMB 3.5 ng/mL (0-6.6)
[2020-06-04 15:24] LABS: Bacteria/HPF None Seen HPF (None Seen); Bilirubin Negative (Negative); Blood, Urine Negative (Negative); Clarity Clear (Clear); Glucose, Urine (Dipstick) 30 mg/dL (Negative); Ketone, Urine 10 mg/dL (Negative); Leukocyte 25 Leu/uL (Negative); Nitrite Negative (Negative); Protein, Urine (Dipstick) Negative (Neg-Trace); RBC/HPF None Seen HPF (0-3); Specific Gravity, Urine 1.009 (1.002-1.036); Squamous Epithelial 0-3 HPF (0-3); Urobilinogen Normal mg/dL (Less than 2)
[2020-06-04 15:35] LABS: Lactic Acid 2.4 mmol/L (0.5-2.2)
[2020-06-04] MEDS ORDERED: Guaifenesin DM 100-10/5 ML UDCUP PO PRN (17:54)
[2020-06-04] MEDS ORDERED: Senokot S 8.6-50 MG TAB PO PRN (17:54)
[2020-06-04] MEDS ORDERED: Dextrose 5% in Water 1,000 ML IV PRN (17:54)
[2020-06-04] MEDS ORDERED: Acetaminophen 325 MG TAB PO PRN (17:54)
[2020-06-04] MEDS ORDERED: Ondansetron PF 4 MG/2 ML Vial IVP PRN (17:54)
[2020-06-04] MEDS ORDERED: PROVENTIL INHALER 6.7 G (200 INHALATIONS) INH PRN (17:54)
[2020-06-04] MEDS ORDERED: Dextrose 50% Abboject 50 ML SYRINGE SLOW IVP PRN (17:54)
[2020-06-04] MEDS ORDERED: Bisacodyl 10 MG SUPP PR PRN (17:54)
--- NOTE | 2020-06-04 18:37 | HP ---
REASON FOR ADMISSION: Persistent hypoglycemia, hypothermia, alcohol abuse, urinary retention, acute metabolic encephalopathy secondary to hypoglycemia. HISTORY OF PRESENTING ILLNESS: Please note majority of this history is obtained by talking to ER physician, Dr. Mendoza, and prior medical records as the patient is not fully oriented at present. He is still coming out of his hypoglycemic episode. The patient's apparently called EMS as he was not himself. When EMS arrived, his fingerstick glucose was 46. They gave him multiple doses of D50 and the patient soon responded well. On arrival, the patient had a temperature of 93.3 degrees rectal. He was placed on Cyril Hugger. The patient had a drop in his fingerstick glucose again dropping into 60s on arrival here. He has had 2 repeat sticks fingerstick glucose done, both were in the 66, hence was placed on D10 drip. The patient's bicarb was also 12 and he is being admitted for close monitoring. He has no complaints of cough or expectoration. No complaints of abdominal pain. He has history of drinking at least 1 pint of whiskey, but the patient states it is 1/5th pint. No complaints of chest pain, palpitation, PND, or orthopnea. He states he ambulates by himself and lives with his . PAST MEDICAL AND SURGICAL HISTORY: 1. History of cholelithiasis with sludge. 2. Prior history of dysphagia. 3. Prior history of similar episode in March of this year. 4. History of pulmonary embolus. 5. History of aneurysm in the brain with clipping done. 6. COPD. 7. Right hip fracture with repair. PERSONAL HISTORY: The patient apparently drinks a lot of whiskey per day and it is unclear the exact amount. He does say 1/5th of a pint at present. He smokes half-pack a day. Does not abuse drugs. Lives with his . FAMILY HISTORY: Cannot be accurately obtained as the patient is not oriented fully oriented at present. MEDICATIONS: 1. Albuterol inhaler q.4 hourly p.r.n. 2. Flomax 0.4 mg p.o. daily. 3. Folic acid 1 mg p.o. daily. 4. Thiamine 100 mg p.o. daily. CODE STATUS: Full. 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 REVIEW OF SYSTEMS: CONSTITUTIONAL: Negative for weight loss or gain, ability to conduct usual activities. SKIN: Negative for rash, itching. EYES: Negative for double vision, pain. ENT/MOUTH: Negative for nose bleeding, neck stiffness, pain, tenderness. CARDIOVASCULAR: Negative for palpitations, dyspnea on exertion, orthopnea. RESPIRATORY: Negative for shortness of breath, wheezing, cough, hemoptysis, fever or night sweats. GASTROINTESTINAL: Negative for poor appetite, abdominal pain, heartburn, nausea, vomiting, constipation, or diarrhea. GENITOURINARY: Negative for urgency, frequency, dysuria, nocturia. MUSCULOSKELETAL: Negative for pain, swelling. NEUROLOGIC/PSYCHIATRIC: Negative for anxiety, depression. ALLERGY/IMMUNOLOGIC: Negative for skin rash, bleeding tendency. PHYSICAL EXAMINATION: GENERAL: The patient is a 74-year-old male, who is currently not in any acute distress. VITAL SIGNS: Blood pressure 146/84, pulse 84 per minute, respiratory rate 16 per minute, temperature on arrival was 93.3 degrees, saturating 99% on room air. NECK: Supple. No elevated JVD. HEENT: Eyes; extraocular muscles intact. Pupils reacting to light. Oral cavity, mucous membranes are dry. No exudates or congestion. CARDIOVASCULAR: S1-S2 heard. Regular rhythm. RESPIRATORY: Air entry 1+ bilateral. No rales or rhonchi. ABDOMEN: Soft. Bowel sounds heard. No tenderness, rigidity, or guarding. EXTREMITIES: No peripheral edema or calf tenderness. VASCULAR: Peripheral pulses 1+ bilateral. No ischemic ulcers or gangrene. CENTRAL NERVOUS SYSTEM: No gross focal deficits noted. The patient knows he is at [facility]. He responds well to verbal questions. He does not recall what happened at home. He is not fully oriented. PSYCHIATRIC: No obvious hallucinations or delusions at present. LABORATORY DATA: White count of 4.6, H and H 13 and 42, platelet count 170, MCV is 82 with 51% neutrophils. PT/INR, PTT within normal limits. Sodium 130, serum bicarb is 12, BUN is 11, creatinine 0.7, serum glucose 63. Lactic acid 6.4. AST, ALT, and alkaline phosphatase are within normal limits. CK levels are 87. Albumin is 3.5. Lipase is 46. UA shows leuk esterase of 25. Plasma alcohol is 20 mg/dL. Chest x-ray done shows no acute cardiopulmonary abnormality. CLINICAL IMPRESSION AND PLAN: The patient will be admitted to [facility] for hypothermia, hypoglycemia, both likely due to alcoholism and inadequate oral intake versus sepsis. Blood and urine cultures have been obtained. The patient has had urinary retention in March and had Manzo placed and was also initiated on Flomax. He states he has not seen a urologist on the outside. We will obtain urine cultures as well. He will be empirically placed on vancomycin and Zosyn. He is on a Cyril Hugger and is slowly warming up. We will continue his Flomax. Banana bag D10 at 100 mL per hour until his fingerstick glucose is more than 100 mg/dL q.6 hourly x2, at which time we can discontinue this. We will also obtain a CT of the abdomen and pelvis to make sure no intraabdominal process is causing his bicarb to come down other than alcohol abuse. Job ID: [id number]
--- NOTE | 2020-06-04 19:17 | CT ---
CT ABDOMEN AND PELVIS WITH IV CONTRAST: Date: 06-04-2020 PROVIDED CLINICAL HISTORY: Altered mental status and hypoglycemia. FINDINGS: Comparison 02-03-2017. Trace bibasilar pleural fluid. Extensive atherosclerotic vascular calcification. The solid abdominal organs demonstrate no significant abnormality. Gallstones are noted without associated gallbladder di stension apparent. There is no bowel dilatation, localized inflammatory fat stranding, free fluid or free air apparent. Manzo catheter is seen within the urinary bladder with associated bladder gas. Pos t operative changes are noted involving the right hip. The osseous structures demonstrate no concerni ng lytic or blastic lesions. There is remote appearing superior endplate compression deformity of L4. IMPRESSION: No evidence for an acute process. Chronic findings as above. POS: SANIA
[2020-06-04] MEDS: Dextrose 10% in Water 1,000 ML IV SCH (21:45)
[2020-06-04] MEDS: Multivitamins, Adult 10 ML, Folic Acid 1 MG, Thiamine HCl 100 MG in Dextrose 5 %-0.45 %... IV SCH (21:48)
[2020-06-04] MEDS: Vancomycin 1 GM in Premix Bag 1 BAG IVPB SCH (21:49)
[2020-06-04] MEDS: Famotidine 20 MG TAB PO SCH (21:52)
[2020-06-04] MEDS: Piperacillin/Tazobactam 3.375 GM in Sodium Chloride 0.9% 100 ML IVPB SCH (21:55)
[2020-06-04 22:35] VITALS: BMI 19.0
[2020-06-04 23:12] LABS: SARS-CoV-2 MS2 Positive; SARS-CoV-2 N Gene Negative; SARS-CoV-2 S Gene Negative; SARS-CoV-2 by NAA Not Detected (NotDetected); SARS-CoV-2 orf1ab Negative
[2020-06-05] MEDS: Dextrose 10% in Water 1,000 ML IV SCH ×2 (01:37→12:10)
[2020-06-05 04:10] LABS: #Eosinphils 0.2 thou/uL (0.0-0.7); #Lymphocytes 1.9 thou/uL (1.20-3.40); #Monocytes 0.5 thou/uL (0.11-0.59); #Neutrophils 3.4 thou/uL (1.40-6.50); %Basophils 0.6 % (0.0-1.0); %Eosinophils 2.8 % (0.0-10.0); %Lymphocytes 31.7 % (21.0-51.0); %Monocytes 7.5 % (0.0-10.0); %Neutrophils 57.3 % (42.0-75.0); Mean Corpuscular HGB CONC 32.1 g/dL (32.0-36.0); Mean Corpuscular Hemoglobin 26.9 pg (27.0-31.0); Mean Corpuscular Volume 83.7 fL (78.0-98.0); Mean Platelet Volume 10.1 fL (7.4-10.4); Platelet Count 168 thou/uL (130-400); RBC Distribution Width 13.6 % (11.5-14.5); Red Blood Cell (RBC) Count 4.47 mill/uL (4.70-6.10)
[2020-06-05 04:46] LABS: ALT (SGPT) 7 U/L (8-55); AST (SGOT) 20 U/L (5-34); Albumin 2.9 g/dL (3.4-4.8); Alkaline Phosphatase 56 U/L (40-110); Anion Gap 12 mmol/L (10-20); BUN (Urea Nitrogen) 15 mg/dL (8.4-25.7); Bilirubin, Total 0.4 mg/dL (0.2-1.2); Calc. Creatinine Clearance 72 mL/min (70-130); Calcium 8.1 mg/dL (7.8-10.44); Carbon Dioxide 24 mmol/L (23-31); Chloride 102 mmol/L (98-107); Globulin 3.4 g/dL (2.4-3.5); Glucose 144 mg/dL (83-110); Potassium 3.9 mmol/L (3.5-5.1); Protein, Total 6.3 g/dL (5.8-8.1); Sodium 134 mmol/L (136-145)
[2020-06-05] MEDS: Piperacillin/Tazobactam 3.375 GM in Sodium Chloride 0.9% 100 ML IVPB SCH ×3 (06:00→21:02)
[2020-06-05] MEDS: Enoxaparin Sodium 40 MG/0.4 ML SYRINGE SC SCH (08:07)
[2020-06-05] MEDS: Vancomycin 1 GM in Premix Bag 1 BAG IVPB SCH ×2 (08:07→20:26)
[2020-06-05] MEDS: Folic Acid 1 MG TAB PO SCH (08:07)
[2020-06-05] MEDS: Famotidine 20 MG TAB PO SCH ×2 (08:07→20:26)
[2020-06-05] MEDS: Tamsulosin HCl 0.4 MG CAP PO SCH (08:07)
[2020-06-05] MEDS: Thiamine 100 MG TAB PO SCH (08:07)
--- NOTE | 2020-06-05 15:21 | PDOC.HOSPP ---
- Subjective Encounter Date: 06/05/20 Subjective: Feels a lot better. Denies any complaints at this time. - Objective Vital Signs & Weight: Vital Signs (12 hours) Temp Pulse Pulse BP BP Pulse Ox Pulse Ox 06/05/20 09:20 77 75 120/60 110/64 100 99 06/05/20 08:03 99 F 06/05/20 07:00 99.0 F 06/05/20 04:16 97.9 F Weight Weight 140 lb 2.718 oz Most Recent Monitor Data Heart Rate from ECG 73 NIBP 98/61 NIBP BP-Mean 73 Respiration from ECG 16 SpO2 97 I&O: 06/04/20 06/05/20 06/06/20 06:59 06:59 06:59 Intake Total 1922 Output Total 2700 Balance -778 Result Diagrams: 06/05/20 03:36 06/05/20 03:36 Additional Labs: Accuchecks 06/05/20 06/05/20 06/04/20 05:45 00:31 20:32 POC Glucose 126 H 183 H 176 H 06/04/20 06/04/20 06/04/20 18:50 17:14 14:03 POC Glucose 160 H 199 H 134 H Hospitalist ROS - Review of Systems Constitutional: denies: fever, chills, sweats, weakness, malaise, other Eyes: denies: pain, vision change, conjunctivae inflammation, eyelid inflammatio n, redness, other ENT: denies: ear pain, ear discharge, nose pain, nose discharge, nose congestion, mouth pain, mouth swelling, throat pain, throat swelling, other Respiratory: denies: cough, dry, shortness of breath, hemoptysis, SOB with excertion, pleuritic pain, sputum, wheezing, other Cardiovascular: denies: chest pain, palpitations, orthopnea, paroxysmal noc. dyspnea, edema, light headedness, other Gastrointestinal: denies: nausea, vomiting, abdominal pain, diarrhea, constipation, melena, hematochezia, other Genitourinary: denies: dysuria, frequency, incontinence, hematuria, retention, other Musculoskeletal: denies: neck pain, shoulder pain, arm pain, back pain, hand pain, leg pain, foot pain, other Skin: denies: rash, lesions, elizabeth, bruising, other Neurological: denies: weakness, numbness, incoordination, change in speech, confusion, seizures, other - Medication Medications: Active Medications Generic Name Dose Route Start Last Admin Trade Name Silver PRN Reason Stop Dose Admin Enoxaparin Sodium 40 mg 06/05/20 09:00 06/05/20 08:07 Enoxaparin Sodium 40 Mg/0.4 Ml Syringe SC 40 mg 0900 CHERISE Administration Famotidine 20 mg 06/04/20 21:00 06/05/20 08:07 Famotidine 20 Mg Tab PO 20 mg BID CHERISE Administration Folic Acid 1 mg 06/05/20 09:00 06/05/20 08:07 Folic Acid 1 Mg Tab PO 1 mg DAILY CHERISE Administration Multivitamins 10 ml/ Folic 1,011.2 mls @ 100 mls/hr 06/04/20 21:00 06/04/20 21:48 Acid 1 mg/ Thiamine HCl 100 mg IV 1,011.2 mls / Dextrose/Sodium Chloride Q24HR CHERISE Administration Vancomycin HCl 1 gm/ Device 200 mls @ 200 mls/hr 06/04/20 21:00 06/05/20 08:07 IVPB 200 mls Q12HR CHERISE Administration Piperacillin Sod/Tazobactam 100 mls @ 200 mls/hr 06/04/20 22:00 06/05/20 14:04 Sod 3.375 gm/ Sodium Chloride IVPB 100 mls Q8HR CHERISE Administration Tamsulosin HCl 0.4 mg 06/05/20 09:00 06/05/20 08:07 Tamsulosin Hcl 0.4 Mg Cap PO 0.4 mg DAILY CHERISE Administration Thiamine HCl 100 mg 06/05/20 09:00 06/05/20 08:07 Thiamine 100 Mg Tab PO 100 mg DAILY CHERISE Administration - Exam General Appearance: NAD, awake alert Eye: PERRL ENT: normocephalic atraumatic, moist mucosa Neck: supple, symmetric, no JVD, no thyromegaly Heart: RRR, no murmur, no gallops Respiratory: CTAB, no wheezes, no rales, no ronchi Gastrointestinal: soft, non-tender, non-distended, normal bowel sounds Extremities: no cyanosis, no clubbing, no edema Skin: no lesions, no rashes Neurological: cranial nerve grossly intact, no focal deficits Musculoskeletal: normal strength, no muscle wasting Psychiatric: normal affect, normal behavior, A&O x 3 Hosp A/P (1) Hypothermia Code(s): T68.XXXA - HYPOTHERMIA, INITIAL ENCOUNTER Status: Acute Qualifiers: Encounter type: initial encounter Qualified Code(s): T68.XXXA - Hypothermia, initial encounter Plan: Now resolved s/p jennifer parker. Likely due to sepsis from UTI. (2) UTI (urinary tract infection) Status: Acute Qualifiers: Urinary tract infection type: site unspecified Plan: Likely cause of sepsis. GN rods noted. Will cont current abx. F/u with final C and S. (3) Sepsis Code(s): A41.9 - SEPSIS, UNSPECIFIED ORGANISM Status: Acute Qualifiers: Sepsis type: sepsis due to unspecified organism Severe sepsis shock status: without septic shock Plan: Likely from GN UTI. Noted with hypothermia and hypoglycemia. Cont current abx. Monitor blood and urine cx. (4) ETOH abuse Code(s): F10.10 - ALCOHOL ABUSE, UNCOMPLICATED Status: Acute Plan: No sign of withdrawal noted now. Will give Benzo's as indicated. (5) Hypoglycemia Code(s): E16.2 - HYPOGLYCEMIA, UNSPECIFIED Status: Acute Plan: Resolved. Likely due to Sepsis form UTI. Cont to monitor BG. D/ IVF D5 as pt is eating and tolerating his meals. (6) Pulmonary embolus Code(s): I26.99 - OTHER PULMONARY EMBOLISM WITHOUT ACUTE COR PULMONALE Status: Chronic Qualifiers: Chronicity: unspecified Acute cor pulmonale presence: without acute cor pulmonale Plan: Pt has a hx of PE. Not on anticoagulation at this time. (7) BPH (benign prostatic hyperplasia) Code(s): N40.0 - BENIGN PROSTATIC HYPERPLASIA WITHOUT LOWER URINRY TRACT SYMP Status: Chronic Qualifiers: Lower urinary tract symptom presence: unspecified whether lower urinary tract symptoms present Qualified Code(s): N40.0 - Benign prostatic hyperplasia without lower urinary tract symptoms Plan: Cont Flomax. Dc edwards cather. (8) COPD (chronic obstructive pulmonary disease) Status: Chronic Qualifiers: COPD type: chronic bronchitis Chronic bronchitis type: unspecified Qualified Code(s): J42 - Unspecified chronic bronchitis Plan: No signs of exacerbations. Give nebs as indicated. (9) HTN (hypertension) Code(s): I10 - ESSENTIAL (PRIMARY) HYPERTENSION Status: Chronic Qualifiers: Hypertension type: essential hypertension Qualified Code(s): I10 - Essential (primary) hypertension Plan: Normal BP noted. Cont med. Monitor BP. - Plan PPx: Lovenox and Pepcid. CODE: FULL. Dispo: Transfer out of IMU. Likely dc in 1-2 days.
[2020-06-05] MEDS: Multivitamins, Adult 10 ML, Folic Acid 1 MG, Thiamine HCl 100 MG in Dextrose 5 %-0.45 %... IV SCH (20:48)
[2020-06-05 23:59] LABS: Bacteria/HPF None Seen HPF (None Seen); Bilirubin Negative (Negative); Blood, Urine Negative (Negative); Clarity Clear (Clear); Glucose, Urine (Dipstick) Normal (Negative); Ketone, Urine Negative (Negative); Leukocyte 75 Leu/uL (Negative); Nitrite Negative (Negative); Protein, Urine (Dipstick) Negative (Neg-Trace); RBC/HPF None Seen HPF (0-3); Specific Gravity, Urine 1.004 (1.002-1.036); Squamous Epithelial 0-3 HPF (0-3); Urobilinogen Normal mg/dL (Less than 2)
[2020-06-06 00:01] LABS: Urine Culture Reflex Yes Yes
[2020-06-06 04:04] LABS: #Eosinphils 0.3 thou/uL (0.0-0.7); #Lymphocytes 1.9 thou/uL (1.20-3.40); #Monocytes 0.4 thou/uL (0.11-0.59); #Neutrophils 1.8 thou/uL (1.40-6.50); %Basophils 0.7 % (0.0-1.0); %Eosinophils 7.6 % (0.0-10.0); %Lymphocytes 42.3 % (21.0-51.0); %Monocytes 9.1 % (0.0-10.0); %Neutrophils 40.3 % (42.0-75.0); Hemoglobin 11.8 g/dL (14.0-18.0); Mean Corpuscular HGB CONC 32.1 g/dL (32.0-36.0); Mean Corpuscular Volume 84.2 fL (78.0-98.0); Platelet Count 144 thou/uL (130-400); RBC Distribution Width 13.7 % (11.5-14.5); Red Blood Cell (RBC) Count 4.38 mill/uL (4.70-6.10); White Blood Cell (WBC) Count 4.4 thou/uL (4.8-10.8)
[2020-06-06 04:26] LABS: Anion Gap 14 mmol/L (10-20); BUN (Urea Nitrogen) 10 mg/dL (8.4-25.7); Calc. Creatinine Clearance 62 mL/min (70-130); Calcium 8.4 mg/dL (7.8-10.44); Carbon Dioxide 25 mmol/L (23-31); Chloride 106 mmol/L (98-107); Glucose 112 mg/dL (83-110); Magnesium 1.8 mg/dL (1.6-2.6); Potassium 3.7 mmol/L (3.5-5.1); Sodium 141 mmol/L (136-145)
[2020-06-06] MEDS: Piperacillin/Tazobactam 3.375 GM in Sodium Chloride 0.9% 100 ML IVPB SCH ×2 (05:11→15:20)
[2020-06-06 08:17] LABS: Vancomycin, Trough 17.8 ug/mL
[2020-06-06] MEDS: Enoxaparin Sodium 40 MG/0.4 ML SYRINGE SC SCH (08:52)
[2020-06-06] MEDS: Thiamine 100 MG TAB PO SCH (08:52)
[2020-06-06] MEDS: Folic Acid 1 MG TAB PO SCH (08:52)
[2020-06-06] MEDS: Vancomycin 1 GM in Premix Bag 1 BAG IVPB SCH (08:52)
[2020-06-06] MEDS: Famotidine 20 MG TAB PO SCH (08:52)
[2020-06-06] MEDS: Tamsulosin HCl 0.4 MG CAP PO SCH (08:52)
[2020-06-06 10:51] VITALS: BP 142/71
[2020-06-06 12:05] VITALS: TEMP 98
--- NOTE | 2020-06-07 01:39 | DIS ---
DATE OF ADMISSION: 06/04/2020 DATE OF DISCHARGE: 06/06/2020 DISCHARGE DIAGNOSES: 1. Sepsis, suspected secondary to urinary tract infection, resolved. 2. Urinary tract infection, organism not identified. 3. Hypothermia secondary to sepsis, resolved. 4. Alcohol abuse, chronic. 5. Hypoglycemia, transient secondary to sepsis, resolved. CONSULTATIONS: None. PERTINENT LABORATORY AND X-RAY FINDINGS: Lactic acid level ranged between 2.4 to 6.4. TSH 1.03. CBC showed a white blood cell count ranged between 4.4 to 6.0, hemoglobin ranged between 11.8 to 13.4. Plasma alcohol level 20, 06/04/2020. COVID-19 PCR not detected, 06/04/2020. Blood cultures x2, dated 06/04/2020, showed no growth at 48 hours. Urine culture dated 06/04/2020, showed greater than 100,000 colonies of gram-negative rods. Urine culture dated 06/06/2020, showed no growth at 12 hours. Portable chest x-ray dated 06/04/2020, showed no acute cardiopulmonary process. CT of the abdomen and pelvis dated 06/04/2020, showed no acute intraabdominal process. HOSPITAL COURSE: The patient was initially admitted after presenting with altered mental status in the context of hypoglycemia and hypothermia in addition to alcohol abuse. The patient was initially managed in the emergency room with multiple doses of D50 in addition to IV fluids and placed on a Cyril Hugger. The patient with initial alcohol level of 20 as stated previously, placed in the IMCU for hypothermia and hypoglycemia. The patient was also given broad-spectrum IV antibiotic coverage with vancomycin and Zosyn after concern for sepsis picture, given lactic acidosis and sepsis criteria. Initial urinalysis was concerning for infectious process with coverage directed at urinary pathogens. Final urine culture showing no growth currently on 06/06/2020. However, the patient will continue on Omnicef 300 mg b.i.d. on an outpatient basis. The patient overall clinically stabilized with general supportive management. Glucose trend has been stable and patient tolerating regular oral intake. I have examined the patient at the time of discharge and discussed followup instructions. The patient verbalizes understanding and agreement ready for discharge 06/06/2020. DISCHARGE MEDICATIONS: Omnicef 300 mg p.o. b.i.d. x5 days. FOLLOWUP: The patient may follow up with his primary care provider at [place], [place]. CONDITION ON DISCHARGE: Stable. ACTIVITY: Ad-mishel. DIET: Regular. CODE STATUS: Full. DISPOSITION: To home. Job ID: [id number]
--- NOTE | 2020-06-08 07:22 | PQF ---
CLINICAL DOCUMENTATION CLARIFICATION FORM: Dear : Ehsan Bhakta Date / Time: 06/08/2020721 Please exercise your independent, professional judgment in responding to the clarification form. Clinical indicators are provided on the bottom of this form for your review Please check appropriate box(es): UTI please specify if due to or related to (as applicable): [ x ] Indwelling catheter [ ] Unable to determine etiology [ ] Other diagnosis, please specify [ ] Unable to determine Physician Signature: Date/Time: For continuity of documentation, please document condition throughout progress notes and discharge summary. Thank You. To be completed by CDI/Coding staff for physician review: Present Clinical Indicators - Signs / Symptoms / Labs Results and Location in Medical Record [X] Urinalysis : pH 6.0, Leukocyte Esterase 25, Ketones 10, WBC 46 Laboratory 06/04 [X] WBC 4.6, Plt cound 170, Neutrophils 170 Laboratory 06/04 [X] Urine Culture : Pseudomonas aeruginosa Microbiology 06/04 [X] BP 116/60, Pulse 79, Resp 17, Temp 98.3 Vital signs 06/04 [X] Urinary retention ED notes p10 06/04 [X] Has had urinary retention in Sep and had Manzo placed H&P p1 06/04 Dr Gold [X] UTI H&P p1 06/04 Dr Gold Present Risk Factors Results and Location in Medical Record [X] Sepsis ED notes p10 06/04 [X] BPH H&P p1 06/04 Dr Gold [X] Manzo in placed H&P p1 06/04 Dr Gold Present Treatments Results and Location in Medical Record [X] IV Vancomycin 1 gm SEP 14 [X] IV Zosyn 3.375 gm SEP 14 [X] IV Cefepime 2 gm SEP 14 [X] Discontinue Manzo catheter Order 06/04 Dr Glod CDS/Musical Therapist Signature: Sharlene Cashpepito Phone #: [phone] Date/Time: 06/08/2020721 This is a permanent part of the Medical Record [facility]
--- NOTE | 2020-06-10 14:53 | EKG ---
Test Reason : Blood Pressure : / mmHG Vent. Rate : 082 BPM Atrial Rate : 082 BPM P-R Int : 160 ms QRS Dur : 088 ms QT Int : 388 ms P-R-T Axes : 064 -83 005 degrees QTc Int : 453 ms Normal sinus rhythm Left axis deviation Inferior infarct , age undetermined Abnormal ECG Confirmed by MARYCARMEN RUANO, GABBI ([id number]), continuity editor CHRISTINE PETERSEN ([id number]) on 06/10/2020 2:52:33 PM Referred By: Confirmed By:GABBI CONROY MD
--- NOTE | 2020-06-10 15:05 | EKG ---
Test Reason : Blood Pressure : / mmHG Vent. Rate : 093 BPM Atrial Rate : 093 BPM P-R Int : 160 ms QRS Dur : 086 ms QT Int : 396 ms P-R-T Axes : 000 -74 085 degrees QTc Int : 492 ms Sinus rhythm with Fusion complexes Left axis deviation Low voltage QRS Septal infarct , age undetermined Abnormal ECG Baseline Artifact Present Confirmed by HONEY RAY M.D. ([id number]), food editor CHRISTINE PETERSEN ([id number]) on 06/10/2020 3:04:57 PM Referred By: Confirmed By:HONEY RAY M.D.
== END 2020-06-06 16:05 | disposition home or self-care (01) | DRG 698 ==
LOC: ERS 11:38 → IMCU/EMU 17:21
PROVIDERS: ADMIT Internal Medicine; ATTEND Internal Medicine
DX: T83.511A Infection and inflammatory reaction due to indwelling urethral catheter, initial encounter (principal); A41.9 Sepsis, unspecified organism; G93.41 Metabolic encephalopathy; E87.2 Acidosis; N39.0 Urinary tract infection, site not specified; Z20.828 Contact with and (suspected) exposure to other viral communicable diseases; E16.2 Hypoglycemia, unspecified; F17.210 Nicotine dependence, cigarettes, uncomplicated; J44.9 Chronic obstructive pulmonary disease, unspecified; F10.20 Alcohol dependence, uncomplicated; Y90.1 Blood alcohol level of 20-39 mg/100 ml; N40.1 Benign prostatic hyperplasia with lower urinary tract symptoms; Y84.6 Urinary catheterization as the cause of abnormal reaction of the patient, or of later complication, without mention of misadventure at the time of the procedure; R33.8 Other retention of urine; Z86.711 Personal history of pulmonary embolism; Z79.899 Other long term (current) drug therapy
CPT/HCPCS: 36415; 36416; 71045; 74177; 80048; 80053; 80202; 80307; 81001; 81003; 81015; 82550; 82553; 83605; 83690; 83735; 84443; 84484; 85025; 85610; 85730; 87040; 87077; 87086; 87186; 87635; 93005; 96365; 96367; 96375; J0692; J1650; J2543; J3370; J3411; J3490; J7042; Q9967; U0003

== ENCOUNTER 2021-01-01 16:01 | Emergency (ER) | payer MEDICARE ==
[2021-01-01 16:56] LABS: #Basophils 0.1 thou/uL (0.0-0.2); #Eosinphils 0.6 thou/uL (0.0-0.7); #Monocytes 0.5 thou/uL (0.11-0.59); %Basophils 1.5 % (0.0-1.0); %Eosinophils 9.7 % (0.0-10.0); %Lymphocytes 32.3 % (21.0-51.0); %Monocytes 7.3 % (0.0-10.0); %Neutrophils 49.2 % (42.0-75.0); Hemoglobin 10.9 g/dL (14.0-18.0); Mean Corpuscular HGB CONC 33.4 g/dL (32.0-36.0); Mean Corpuscular Hemoglobin 28.6 pg (27.0-31.0); Mean Corpuscular Volume 85.4 fL (78.0-98.0); Mean Platelet Volume 9.7 fL (7.4-10.4); Platelet Count 161 thou/uL (130-400); RBC Distribution Width 13.8 % (11.5-14.5); Red Blood Cell (RBC) Count 3.81 mill/uL (4.70-6.10); White Blood Cell (WBC) Count 6.2 thou/uL (4.8-10.8)
[2021-01-01 17:20] LABS: ALT (SGPT) 17 U/L (8-55); AST (SGOT) 32 U/L (5-34); Albumin 3.4 g/dL (3.4-4.8); Alkaline Phosphatase 43 U/L (40-110); Anion Gap 20 mmol/L (10-20); BUN (Urea Nitrogen) 12 mg/dL (8.4-25.7); Bilirubin, Total 0.4 mg/dL (0.2-1.2); Calc. Creatinine Clearance 0 mL/min (70-130); Calcium 8.7 mg/dL (7.8-10.44); Carbon Dioxide 19 mmol/L (23-31); Chloride 105 mmol/L (98-107); Globulin 3.4 g/dL (2.4-3.5); Glucose 89 mg/dL (83-110); Potassium 3.5 mmol/L (3.5-5.1); Protein, Total 6.8 g/dL (5.8-8.1); Sodium 140 mmol/L (136-145)
[2021-01-01] MEDS ORDERED: Ketorolac Tromethamine 30 MG/ML VIAL ONE (18:31)
[2021-01-01] MEDS ORDERED: HYDROcodone/Acetaminophen 5/325 mg Tablet ONE (18:31)
== END 2021-01-01 19:00 | disposition home or self-care (01) ==
LOC: ERS 16:01
DX: S22.39XA Fracture of one rib, unspecified side, initial encounter for closed fracture (principal); J45.909 Unspecified asthma, uncomplicated; Z86.711 Personal history of pulmonary embolism; F17.210 Nicotine dependence, cigarettes, uncomplicated; W19.XXXA Unspecified fall, initial encounter
CPT/HCPCS: 36415; 71045; 80053; 85025; 96374; J1885

== ENCOUNTER 2021-06-17 13:53 | Inpatient (IN) | payer OTHER, MEDICARE ==
[2021-06-17] MEDS ORDERED: Fentanyl 100 MCG/2 ML VIAL ONE ×2 (13:58→16:31)
[2021-06-17] MEDS ORDERED: ceFAZolin 2 GM/DEX 5% 100 ML BAG ONE (14:01)
[2021-06-17] MEDS ORDERED: Boostrix 0.5 ML (Tdap) VIAL ONE (14:01)
[2021-06-17] MEDS ORDERED: Ondansetron PF 4 MG/2 ML Vial IVP PRN (14:06)
[2021-06-17] MEDS ORDERED: Dextrose 50% Abboject 50 ML SYRINGE SLOW IVP PRN (14:06)
[2021-06-17] MEDS ORDERED: Dextrose 5% in Water 1,000 ML IV PRN (14:06)
[2021-06-17] MEDS ORDERED: hydrALAZINE 20 MG/ML VIAL SLOW IVP PRN (14:08)
[2021-06-17 14:11] LABS: #Basophils 0.1 thou/uL (0.0-0.2); #Eosinphils 0.2 thou/uL (0.0-0.7); #Lymphocytes 1.8 thou/uL (1.20-3.40); #Monocytes 0.5 thou/uL (0.11-0.59); #Neutrophils 3.3 thou/uL (1.40-6.50); %Basophils 1.2 % (0.0-1.0); %Eosinophils 3.1 % (0.0-10.0); %Lymphocytes 30.9 % (21.0-51.0); %Monocytes 8.9 % (0.0-10.0); %Neutrophils 55.9 % (42.0-75.0); Mean Corpuscular HGB CONC 32.3 g/dL (32.0-36.0); Mean Corpuscular Hemoglobin 29.1 pg (27.0-31.0); Mean Platelet Volume 9.4 fL (7.4-10.4); Platelet Count 161 thou/uL (130-400); Red Blood Cell (RBC) Count 3.79 mill/uL (4.70-6.10); White Blood Cell (WBC) Count 5.9 thou/uL (4.8-10.8)
[2021-06-17] MEDS ORDERED: Gentamicin 300 MG, Admixture Fee 1 EACH in Sodium Chloride 0.9% 100 ML IVPB SCH (14:15)
[2021-06-17 14:21] LABS: INR-International Normal Ratio 0.9; PTT 32.4 sec (22.9-36.1); Prothrombin Time 12.7 sec (12.0-14.7)
[2021-06-17] MEDS ORDERED: Morphine 4 MG/ML VIAL SLOW IVP PRN (14:23)
[2021-06-17] MEDS ORDERED: Ibuprofen 200 MG TAB PO PRN (14:24)
[2021-06-17 14:33] LABS: ALT (SGPT) 26 U/L (8-55); AST (SGOT) 39 U/L (5-34); Albumin 3.2 g/dL (3.4-4.8); Alcohol 104 mg/dL (Less than 10); Alkaline Phosphatase 49 U/L (40-110); Anion Gap 21 mmol/L (10-20); BUN (Urea Nitrogen) 18 mg/dL (8.4-25.7); Bilirubin, Total 0.6 mg/dL (0.2-1.2); Calc. Creatinine Clearance 0 mL/min (70-130); Calcium 8.9 mg/dL (7.8-10.44); Carbon Dioxide 18 mmol/L (23-31); Chloride 105 mmol/L (98-107); Globulin 3.8 g/dL (2.4-3.5); Glucose 72 mg/dL (83-110); Potassium 3.4 mmol/L (3.5-5.1); Sodium 141 mmol/L (136-145)
[2021-06-17 15:23] LABS: SARS-CoV-2 NAA Rapid Test Not Detected (NotDetected)
[2021-06-17] MEDS ORDERED: Midazolam HCl 2 mg/2 ml Vial ONE ×2 (16:31→16:39)
[2021-06-17] MEDS ORDERED: Propofol 1,000 MG/100 ML VIAL IV ONE (16:38)
[2021-06-17] MEDS ORDERED: Ondansetron PF 4 MG/2 ML Vial ONE (16:45)
[2021-06-17] MEDS ORDERED: Promethazine HCl 25 MG/ML VIAL IVPB PRN (19:09)
[2021-06-17] MEDS ORDERED: Ondansetron HCl/PF 4 MG/2 ML Vial IVP PRN (19:09)
[2021-06-17] MEDS ORDERED: Promethazine HCl 25 MG/ML VIAL IM PRN (19:09)
[2021-06-17] MEDS ORDERED: HYDROmorphone 2 MG/ML VIAL SLOW IVP PRN (19:09)
[2021-06-17] MEDS ORDERED: Ketorolac Tromethamine 30 MG/ML VIAL IVP PRN (19:11)
[2021-06-17] MEDS ORDERED: Ketamine 50 MG/ML (10ML VIAL) ONE (19:12)
[2021-06-17] MEDS: Famotidine/PF 20 mg/2ml Vial SLOW IVP SCH (21:47)
[2021-06-17] MEDS: Oxazepam 10 MG CAP PO SCH (21:47)
[2021-06-17] MEDS: cefTRIAXone\\ROCEPHIN 2 GM in Sodium Chloride 0.9% 100 ML IVPB SCH (21:47)
[2021-06-17] MEDS: Ascorbic Acid 500 mg Chewable Tablet PO SCH (21:47)
[2021-06-17] MEDS: Acetaminophen 325 MG TAB PO SCH (21:47)
[2021-06-17] MEDS: Senokot S 8.6-50 MG TAB PO SCH (21:48)
[2021-06-17 22:06] VITALS: BMI 20.2
[2021-06-18] MEDS: Acetaminophen 325 MG TAB PO SCH ×5 (00:03→23:22)
[2021-06-18 05:55] LABS: #Basophils 0.1 thou/uL (0.0-0.2); #Eosinphils 0.2 thou/uL (0.0-0.7); #Lymphocytes 1.6 thou/uL (1.20-3.40); #Monocytes 0.6 thou/uL (0.11-0.59); #Neutrophils 2.8 thou/uL (1.40-6.50); %Basophils 1.1 % (0.0-1.0); %Eosinophils 3.8 % (0.0-10.0); %Lymphocytes 30.8 % (21.0-51.0); %Neutrophils 53.3 % (42.0-75.0); Hemoglobin 9.1 g/dL (14.0-18.0); Mean Corpuscular HGB CONC 32.1 g/dL (32.0-36.0); Mean Corpuscular Volume 90.4 fL (78.0-98.0); Mean Platelet Volume 9.4 fL (7.4-10.4); Platelet Count 146 thou/uL (130-400); RBC Distribution Width 13.9 % (11.5-14.5); Red Blood Cell (RBC) Count 3.13 mill/uL (4.70-6.10); White Blood Cell (WBC) Count 5.2 thou/uL (4.8-10.8)
[2021-06-18] MEDS: Oxazepam 10 MG CAP PO SCH ×3 (06:13→20:58)
[2021-06-18 06:23] LABS: Anion Gap 12 mmol/L (10-20); BUN (Urea Nitrogen) 20 mg/dL (8.4-25.7); Calc. Creatinine Clearance 76 mL/min (70-130); Calcium 8.1 mg/dL (7.8-10.44); Carbon Dioxide 25 mmol/L (23-31); Chloride 105 mmol/L (98-107); Glucose 90 mg/dL (83-110); Potassium 3.9 mmol/L (3.5-5.1); Sodium 138 mmol/L (136-145)
[2021-06-18] MEDS: Senokot S 8.6-50 MG TAB PO SCH ×2 (08:45→20:58)
[2021-06-18] MEDS: traMADol HCl 50 MG TAB PO PRN ×2 (08:45→16:22)
[2021-06-18] MEDS: Famotidine/PF 20 mg/2ml Vial SLOW IVP SCH ×2 (08:46→20:59)
[2021-06-18] MEDS: Folic Acid 1 MG TAB PO SCH (08:46)
[2021-06-18] MEDS: Enoxaparin Sodium 40 MG/0.4 ML SYRINGE SC SCH (08:46)
[2021-06-18] MEDS: Ascorbic Acid 500 mg Chewable Tablet PO SCH ×2 (08:46→20:59)
[2021-06-18] MEDS: Thiamine 100 MG TAB PO SCH (08:46)
[2021-06-18] MEDS: Polyethylene Glycol 3350 17 GM Packet PO SCH (08:46)
[2021-06-18] MEDS: Ibuprofen 200 MG TAB PO SCH ×2 (13:04→20:58)
[2021-06-18] MEDS: cefTRIAXone\\ROCEPHIN 2 GM in Sodium Chloride 0.9% 100 ML IVPB SCH (18:39)
[2021-06-19] MEDS: Acetaminophen 325 MG TAB PO SCH ×3 (05:41→18:24)
[2021-06-19] MEDS: Oxazepam 10 MG CAP PO SCH ×2 (05:42→15:37)
[2021-06-19] MEDS: Ibuprofen 200 MG TAB PO SCH ×2 (05:42→15:37)
[2021-06-19] MEDS: Enoxaparin Sodium 40 MG/0.4 ML SYRINGE SC SCH (08:37)
[2021-06-19] MEDS: Polyethylene Glycol 3350 17 GM Packet PO SCH (08:37)
[2021-06-19] MEDS: Ascorbic Acid 500 mg Chewable Tablet PO SCH (08:37)
[2021-06-19] MEDS: Senokot S 8.6-50 MG TAB PO SCH (08:37)
[2021-06-19] MEDS: Folic Acid 1 MG TAB PO SCH (08:38)
[2021-06-19] MEDS: Thiamine 100 MG TAB PO SCH (08:38)
[2021-06-19] MEDS: traMADol HCl 50 MG TAB PO PRN (18:22)
[2021-06-19 19:14] VITALS: BP 126/76; TEMP 97.7
[2021-06-20] MEDS ORDERED: Tamsulosin HCl 0.4 MG CAP PO SCH (09:00)
== END 2021-06-19 18:20 | DRG 493 ==
LOC: ERS 13:53 → SDC 15:20 → SURG B 15:21
PROVIDERS: ADMIT Orthopaedic Surgery; ATTEND Orthopaedic Surgery
PROC: 0QSG04Z Reposition Right Tibia with Internal Fixation Device, Open Approach (ICD-10-PCS; principal; 2021-06-17)
DX: S82.871B Displaced pilon fracture of right tibia, initial encounter for open fracture type I or II (principal); E46 Unspecified protein-calorie malnutrition; F17.210 Nicotine dependence, cigarettes, uncomplicated; Z20.822 Contact with and (suspected) exposure to COVID-19; E88.09 Other disorders of plasma-protein metabolism, not elsewhere classified; J45.909 Unspecified asthma, uncomplicated; D64.9 Anemia, unspecified; F10.10 Alcohol abuse, uncomplicated; M85.80 Other specified disorders of bone density and structure, unspecified site; Z96.643 Presence of artificial hip joint, bilateral; W01.0XXA Fall on same level from slipping, tripping and stumbling without subsequent striking against object, initial encounter; Z86.73 Personal history of transient ischemic attack (TIA), and cerebral infarction without residual deficits; I25.2 Old myocardial infarction; Z68.20 Body mass index [BMI] 20.0-20.9, adult; Y92.002 Bathroom of unspecified non-institutional (private) residence as the place of occurrence of the external cause
CPT/HCPCS: 27788; 36415; 71045; 76000; 80048; 80053; 80307; 85025; 85610; 85730; 90471; 90715; 93005; 96365; 96367; 96375; C1713; G0390; J0696; J1580; J1650; J2250; J2405; J2704; J3010; J3490; J7620; S0028; U0002

== ENCOUNTER 2021-09-06 12:36 | Outpatient (CLI) | payer MEDICARE ==
[2021-09-06 13:28] LABS: #Basophils 0.1 10x3/uL (0.0-0.2); #Eosinphils 1.2 10x3/uL (0.0-0.5); #Monocytes 0.5 10x3/uL (0.0-1.1); #Neutrophils 3.5 10x3/uL (1.5-8.4); %Basophils 0.9 % (0.0-2.0); %Eosinophils 15.1 % (0.0-6.0); %Lymphocytes 31.7 % (18.0-47.0); %Monocytes 6.7 % (0.0-10.0); %Neutrophils 45.3 % (40.0-75.0); Hemoglobin 10.9 g/dL (13.5-17.5); Mean Corpuscular HGB CONC 32.2 g/dL (32.0-36.0); Mean Corpuscular Hemoglobin 24.3 pg (27.0-33.0); Mean Corpuscular Volume 75.3 fl (81.2-95.1); Mean Platelet Volume 9.9 fl (7.4-10.4); Platelet Count 248 10x3/uL (150-450); Red Blood Cell (RBC) Count 4.49 10x6/uL (4.32-5.72); White Blood Cell (WBC) Count 7.6 10x3/uL (3.5-10.5)
[2021-09-06 13:50] LABS: Anion Gap 14 mmol/L (10-20); BUN (Urea Nitrogen) 12 mg/dL (8.4-25.7); Calc. Creatinine Clearance 0 mL/min (70-130); Calcium 9.2 mg/dL (7.8-10.44); Carbon Dioxide 21 mmol/L (23-31); Chloride 104 mmol/L (98-107); Glucose 83 mg/dL (83-110); Potassium 4.1 mmol/L (3.5-5.1); Sodium 135 mmol/L (136-145)
[2021-09-07 02:33] LABS: SARS-CoV-2 PCR by NAA Not Detected (NotDetected)
== END 2021-09-06 12:37 | disposition home or self-care (01) ==
LOC: LABBT 12:36
PROVIDERS: ATTEND Orthopaedic Surgery
DX: Z01.818 Encounter for other preprocedural examination (principal); S82.891E Other fracture of right lower leg, subsequent encounter for open fracture type I or II with routine healing; Z20.822 Contact with and (suspected) exposure to COVID-19
CPT/HCPCS: 80048; 85025; 93005; U0003; U0005; 93010

== ENCOUNTER 2021-09-11 06:36 | Day surgery (SDC) | payer MEDICARE ==
[2021-09-07 09:27] VITALS: BMI 18.9
[2021-09-11] MEDS ORDERED: Bupivacaine 0.25% HCL 30 ML VIAL ONE (09:11)
[2021-09-11] MEDS ORDERED: ceFAZolin 2 GM/Dextrose 50 ML IVPB ONE (09:15)
[2021-09-11] MEDS ORDERED: Fentanyl 250 MCG/5 ML VIAL ONE (09:21)
[2021-09-11] MEDS ORDERED: PROPOFOL 200 MG/20 ML VIAL ONE (09:30)
[2021-09-11] MEDS ORDERED: ePHEDrine 50 MG/ML VIAL ONE (09:30)
[2021-09-11] MEDS ORDERED: Lidocaine 1% PF 5 ML VIAL ONE (09:30)
[2021-09-11] MEDS ORDERED: Ondansetron PF 4 MG/2 ML Vial ONE (09:30)
[2021-09-11] MEDS ORDERED: PHENYLEPHRINE-NS 100 MCG/ML 10 ML SYRINGE ONE (09:30)
[2021-09-11] MEDS ORDERED: Xylocaine 1% w/ Epi 1:100K 10 ML VIAL ONE (09:44)
== END 2021-09-11 11:41 | disposition home or self-care (01) ==
LOC: SDC 06:36
PROVIDERS: ATTEND Orthopaedic Surgery
PROC: 0SPF04Z Removal of Internal Fixation Device from Right Ankle Joint, Open Approach (ICD-10-PCS; principal; 2021-09-11)
DX: S82.891E Other fracture of right lower leg, subsequent encounter for open fracture type I or II with routine healing (principal); J45.909 Unspecified asthma, uncomplicated; F10.11 Alcohol abuse, in remission; I10 Essential (primary) hypertension; N40.0 Benign prostatic hyperplasia without lower urinary tract symptoms; K59.00 Constipation, unspecified; Z86.711 Personal history of pulmonary embolism; Z87.891 Personal history of nicotine dependence; Z79.899 Other long term (current) drug therapy
CPT/HCPCS: 76000; J0690; J2405; J2704; J3010; J3490; S0020

== ENCOUNTER 2021-11-27 17:12 | Inpatient (IN) | payer MEDICARE ==
[2021-11-27 17:57] LABS: Mean Corpuscular HGB CONC 31.5 g/dL (32.0-36.0); Mean Corpuscular Volume 79.3 fL (78.0-98.0); RBC Distribution Width 17.6 % (11.5-14.5); Red Blood Cell (RBC) Count 4.41 mill/uL (4.70-6.10); White Blood Cell (WBC) Count 5.1 thou/uL (4.8-10.8)
[2021-11-27 18:00] LABS: INR-International Normal Ratio 0.9; Prothrombin Time 12.3 sec (12.0-14.7)
[2021-11-27 18:14] LABS: ALT (SGPT) 78 U/L (8-55); AST (SGOT) 174 U/L (5-34); Albumin 3.6 g/dL (3.4-4.8); Alkaline Phosphatase 69 U/L (40-110); Anion Gap 25 mmol/L (10-20); BUN (Urea Nitrogen) 27 mg/dL (8.4-25.7); Bilirubin, Total 0.7 mg/dL (0.2-1.2); CK (CPK) 592 U/L (30-200); Calc. Creatinine Clearance 0 mL/min (70-130); Calcium 8.3 mg/dL (7.8-10.44); Carbon Dioxide 17 mmol/L (23-31); Chloride 97 mmol/L (98-107); Globulin 3.4 g/dL (2.4-3.5); Glucose 81 mg/dL (83-110); Magnesium 1.8 mg/dL (1.6-2.6); Potassium 3.4 mmol/L (3.5-5.1); Sodium 136 mmol/L (136-145)
[2021-11-27 18:31] LABS: Anisocytosis SLIGHT = 6-15 cells (100X) (0-5/hpf); Band 9 % (5-11); Eosinophils 4 % (0-10); Hypochromia SLIGHT = 6-15 cells (100X) (0-5/hpf); Lymphocytes 29 % (21-51); MDiff Complete? YES; Mean Platelet Volume 6.5 fL (7.4-10.4); Monocytes 8 % (0-10); Neutrophil 47 % (42-75); Ovalocytes SLIGHT = 2-5 cells (100X) (0-1/hpf); Platelet Count 89 thou/uL (130-400); Platelet Morphology Comment Appears Decreased; Polychromasia SLIGHT = 2-3 cells (100X) (0-2/hpf); Reactive Lymphocytes 1 % (0-10); Target Cells SLIGHT = 2-5 cells (100X) (0-1/hpf)
[2021-11-27] MEDS ORDERED: Multivitamins, Adult 10 ML, Folic Acid 1 MG, Thiamine HCl 100 MG in Dextrose 5 %-0.45 %... IV SCH (19:30)
[2021-11-27 21:09] LABS: Lactic Acid 1.2 mmol/L (0.5-2.2)
[2021-11-28] MEDS ORDERED: Acetaminophen 650 MG Suppository PR PRN (01:10)
[2021-11-28] MEDS ORDERED: Ondansetron ODT 4 MG TAB PO PRN ×2 (01:10→04:54)
[2021-11-28] MEDS ORDERED: Ondansetron PF 4 MG/2 ML Vial IVP PRN (01:10)
[2021-11-28 01:11] VITALS: BMI 19.1
[2021-11-28] MEDS ORDERED: Electrolyte Replacement Protocol 1 EACH FS SCH ×2 (04:30→05:00)
[2021-11-28] MEDS ORDERED: Lorazepam 1 MG TAB PO PRN (04:54)
[2021-11-28] MEDS ORDERED: Lorazepam 2 MG/ML VIAL IM PRN (04:54)
[2021-11-28] MEDS: Sodium Chloride 0.9% 1,000 ML IV SCH ×2 (06:33→15:13)
[2021-11-28] MEDS: Lorazepam 1 MG TAB PO SCH ×3 (06:34→14:45)
[2021-11-28 06:45] LABS: Hemoglobin 10.9 g/dL (14.0-18.0); Mean Corpuscular HGB CONC 31.7 g/dL (32.0-36.0); Mean Corpuscular Hemoglobin 25.2 pg (27.0-31.0); Mean Corpuscular Volume 79.4 fL (78.0-98.0); Mean Platelet Volume 6.9 fL (7.4-10.4); Platelet Count 90 thou/uL (130-400); RBC Distribution Width 17.8 % (11.5-14.5); Red Blood Cell (RBC) Count 4.32 mill/uL (4.70-6.10); White Blood Cell (WBC) Count 4.4 thou/uL (4.8-10.8)
[2021-11-28 06:56] LABS: Anion Gap 19 mmol/L (10-20); BUN (Urea Nitrogen) 21 mg/dL (8.4-25.7); Calc. Creatinine Clearance 57 mL/min (70-130); Calcium 8.4 mg/dL (7.8-10.44); Carbon Dioxide 21 mmol/L (23-31); Chloride 100 mmol/L (98-107); Glucose 111 mg/dL (83-110); Magnesium 1.8 mg/dL (1.6-2.6); Phosphorus 2.6 mg/dL (2.3-4.7); Potassium 3.2 mmol/L (3.5-5.1); Sodium 137 mmol/L (136-145)
[2021-11-28 07:46] LABS: #Eosinphils 0.4 thou/uL (0.0-0.7); #Lymphocytes 1.3 thou/uL (1.20-3.40); #Monocytes 0.6 thou/uL (0.11-0.59); #Neutrophils 2.2 thou/uL (1.40-6.50); %Basophils 0.6 % (0.0-1.0); %Eosinophils 8.3 % (0.0-10.0); %Lymphocytes 28.6 % (21.0-51.0); %Monocytes 12.8 % (0.0-10.0); %Neutrophils 49.7 % (42.0-75.0); Hypochromia SLIGHT = 6-15 cells (100X) (0-5/hpf); MDiff Complete? YES; Microcytosis SLIGHT = 6-15 cells (100X) (0-5/hpf); Platelet Morphology Comment Appears Decreased; Polychromasia SLIGHT = 2-3 cells (100X) (0-2/hpf); Target Cells SLIGHT = 2-5 cells (100X) (0-1/hpf)
[2021-11-28] MEDS ORDERED: Potassium Chloride 20 MEQ TAB PO SCH (08:00)
[2021-11-28] MEDS ORDERED: Magnesium Sulfate 2 GM in Sodium Chloride 0.9% 100 ML IVPB SCH (08:00)
[2021-11-28] MEDS: Folic Acid 1 MG TAB PO SCH (08:56)
[2021-11-28] MEDS: Multivit, Therapeutic 1 TAB PO SCH (08:56)
[2021-11-28] MEDS ORDERED: Enoxaparin Sodium 40 MG/0.4 ML SYRINGE SC SCH (09:00)
[2021-11-28] MEDS: Acetaminophen 325 MG TAB PO PRN ×2 (09:05→19:28)
[2021-11-28 12:00] LABS: SARS-CoV-2 PCR by NAA Not Detected (NotDetected)
[2021-11-28] MEDS ORDERED: Lorazepam 0.5 MG TAB PO PRN (14:47)
[2021-11-28] MEDS: Ammonium Lactate 12% Lotion 225 GM BOT TOP SCH ×2 (15:13→19:33)
[2021-11-28] MEDS: Senokot S 8.6-50 MG TAB PO SCH (19:28)
[2021-11-28] MEDS: Thiamine HCl 200 MG/2 ML VIAL SLOW IVP SCH (19:28)
[2021-11-29] MEDS: Sodium Chloride 0.9% 1,000 ML IV SCH ×3 (01:36→15:14)
[2021-11-29 04:09] LABS: ALT (SGPT) 50 U/L (8-55); AST (SGOT) 99 U/L (5-34); Albumin 2.8 g/dL (3.4-4.8); Alkaline Phosphatase 66 U/L (40-110); Anion Gap 11 mmol/L (10-20); BUN (Urea Nitrogen) 17 mg/dL (8.4-25.7); Bilirubin, Total 0.6 mg/dL (0.2-1.2); CK (CPK) 212 U/L (30-200); Calc. Creatinine Clearance 71 mL/min (70-130); Calcium 8.1 mg/dL (7.8-10.44); Carbon Dioxide 23 mmol/L (23-31); Chloride 106 mmol/L (98-107); Glucose 121 mg/dL (83-110); Phosphorus 2.4 mg/dL (2.3-4.7); Potassium 3.1 mmol/L (3.5-5.1); Protein, Total 5.8 g/dL (5.8-8.1); Sodium 137 mmol/L (136-145)
[2021-11-29 04:24] LABS: Vitamin D, 25 Hydroxy 11.7 ng/ml (> 30.0)
[2021-11-29 04:28] LABS: Band 9 % (5-11); Eosinophils 4 % (0-10); Hemoglobin 10.1 g/dL (14.0-18.0); Lymphocytes 31 % (21-51); MDiff Complete? YES; Mean Corpuscular HGB CONC 31.5 g/dL (32.0-36.0); Mean Corpuscular Hemoglobin 25.4 pg (27.0-31.0); Mean Corpuscular Volume 80.7 fL (78.0-98.0); Mean Platelet Volume 8.5 fL (7.4-10.4); Monocytes 10 % (0-10); Neutrophil 46 % (42-75); Platelet Count 86 thou/uL (130-400); Platelet Morphology Comment Appears Decreased; RBC Distribution Width 18.1 % (11.5-14.5); Red Blood Cell (RBC) Count 3.98 mill/uL (4.70-6.10); Target Cells SLIGHT = 2-5 cells (100X) (0-1/hpf); Tear Drops SLIGHT = 2-5 cells (100X) (0-1/hpf); White Blood Cell (WBC) Count 3.2 thou/uL (4.8-10.8)
[2021-11-29 04:46] LABS: Bilirubin Negative (Negative); Blood, Urine 3+ (Negative); Clarity Turbid (Clear); Glucose, Urine (Dipstick) Normal (Negative); Ketone, Urine Trace mg/dL (Negative); Leukocyte 500 Leu/uL (Negative); Nitrite Negative (Negative); Protein, Urine (Dipstick) 50 mg/dL (Neg-Trace); Specific Gravity, Urine 1.018 (1.002-1.036)
[2021-11-29 04:50] LABS: Urine Culture Reflex No No
[2021-11-29] MEDS ORDERED: Lorazepam 1 MG TAB PO PRN (04:54)
[2021-11-29] MEDS: Ammonium Lactate 12% Lotion 225 GM BOT TOP SCH ×2 (07:18→21:09)
[2021-11-29] MEDS: Folic Acid 1 MG TAB PO SCH (07:18)
[2021-11-29] MEDS: Multivit, Therapeutic 1 TAB PO SCH (07:18)
[2021-11-29] MEDS: Senokot S 8.6-50 MG TAB PO SCH (07:19)
[2021-11-29] MEDS ORDERED: Magnesium 2 GM/50 ML(in water) 2 GM in Premix Bag 1 BAG IVPB SCH (08:00)
[2021-11-29] MEDS ORDERED: Potassium Chloride 20 MEQ TAB PO SCH (08:00)
[2021-11-29] MEDS ORDERED: Magnesium Sulfate 2 GM in Sodium Chloride 0.9% 100 ML IVPB SCH (09:00)
[2021-11-29] MEDS ORDERED: Ergocalciferol 1.25 MG(50,000 UNITS) CAP PO SCH (09:30)
[2021-11-29 10:47] LABS: HIV (1/2) Antibody/Antigen Non-Reactive (NonReactive); HIV 1/2 INDEX 0.09 S/CO (<1.00); Hep C IgG Ab Non-Reactive (NonReactive); Hep C Index 0.07 S/CO (0-0.79)
[2021-11-29 13:29] LABS: Syphilis Antibody Nonreactive (Nonreactive); Syphilis Antibody Index 0.09 S/CO (<1.00 Non-Reactive)
[2021-11-29 14:49] VITALS: BP 127/76
[2021-11-29] MEDS ORDERED: Aspirin 81 mg Enteric Coated Tablet PO SCH (20:30)
[2021-11-29] MEDS ORDERED: Cyanocobalamin (Vitamin B-12) 1,000 MCG TAB PO SCH (21:00)
[2021-11-29] MEDS ORDERED: pyridOXINE 50 MG (B6) TAB PO SCH (21:00)
[2021-11-29] MEDS: Thiamine HCl 200 MG/2 ML VIAL SLOW IVP SCH (21:08)
[2021-11-29] MEDS: Acetaminophen 325 MG TAB PO PRN (21:18)
[2021-11-29] MEDS ORDERED: traMADol HCl 50 MG TAB PO SCH (23:59)
[2021-11-30 04:03] LABS: ALT (SGPT) 53 U/L (8-55); AST (SGOT) 112 U/L (5-34); Albumin 2.8 g/dL (3.4-4.8); Alkaline Phosphatase 69 U/L (40-110); Anion Gap 11 mmol/L (10-20); BUN (Urea Nitrogen) 12 mg/dL (8.4-25.7); Bilirubin, Total 0.4 mg/dL (0.2-1.2); Calc. Creatinine Clearance 78 mL/min (70-130); Calcium 8.4 mg/dL (7.8-10.44); Carbon Dioxide 23 mmol/L (23-31); Chloride 105 mmol/L (98-107); Glucose 126 mg/dL (83-110); Magnesium 1.7 mg/dL (1.6-2.6); Phosphorus 1.9 mg/dL (2.3-4.7); Potassium 3.2 mmol/L (3.5-5.1); Protein, Total 5.8 g/dL (5.8-8.1); Sodium 136 mmol/L (136-145)
[2021-11-30 04:26] LABS: #Eosinphils 0.2 thou/uL (0.0-0.7); #Lymphocytes 1.5 thou/uL (1.20-3.40); #Monocytes 0.6 thou/uL (0.11-0.59); #Neutrophils 1.4 thou/uL (1.40-6.50); %Basophils 0.8 % (0.0-1.0); %Eosinophils 6.4 % (0.0-10.0); %Lymphocytes 40.6 % (21.0-51.0); %Monocytes 14.7 % (0.0-10.0); %Neutrophils 37.4 % (42.0-75.0); Elliptocytes SLIGHT = 2-5 cells (100X) (0-1/hpf); Hemoglobin 10.3 g/dL (14.0-18.0); Hypochromia SLIGHT = 6-15 cells (100X) (0-5/hpf); MDiff Complete? YES; Mean Corpuscular HGB CONC 31.5 g/dL (32.0-36.0); Mean Corpuscular Hemoglobin 25.4 pg (27.0-31.0); Mean Corpuscular Volume 80.6 fL (78.0-98.0); Platelet Count 115 thou/uL (130-400); Platelet Morphology Comment Appears Decreased; Polychromasia SLIGHT = 2-3 cells (100X) (0-2/hpf); RBC Distribution Width 18.2 % (11.5-14.5); Red Blood Cell (RBC) Count 4.06 mill/uL (4.70-6.10); Target Cells MODERATE= 6-15 cells (100X) (0-1/hpf); White Blood Cell (WBC) Count 3.8 thou/uL (4.8-10.8)
[2021-11-30] MEDS: Sodium Chloride 0.9% 1,000 ML IV SCH (04:31)
[2021-11-30] MEDS ORDERED: Lorazepam 1 MG TAB PO PRN (04:54)
[2021-11-30] MEDS ORDERED: Lorazepam 0.5 MG TAB PO SCH (05:00)
[2021-11-30] MEDS: PHOS-NAK 1 PKT PACK PO SCH ×2 (06:49→11:31)
[2021-11-30] MEDS: Multivit, Therapeutic 1 TAB PO SCH (07:16)
[2021-11-30] MEDS: Ammonium Lactate 12% Lotion 225 GM BOT TOP SCH (07:16)
[2021-11-30] MEDS: Folic Acid 1 MG TAB PO SCH (07:16)
[2021-11-30] MEDS ORDERED: Potassium Chloride 20 MEQ TAB PO SCH (08:00)
[2021-11-30] MEDS ORDERED: Magnesium 2 GM/50 ML(in water) 2 GM in Premix Bag 1 BAG IVPB SCH (08:00)
[2021-11-30] MEDS ORDERED: Potassium Phosphate 15 MMOL in Sodium Chloride 0.9% 250 ML 250 ML IVPB SCH (09:00)
[2021-11-30] MEDS ORDERED: Aspirin 81 mg Enteric Coated Tablet PO SCH (09:00)
[2021-11-30] MEDS ORDERED: Senokot S 8.6-50 MG TAB PO SCH (09:00)
[2021-11-30 19:59] VITALS: TEMP 98.1
[2021-12-01] MEDS ORDERED: Lorazepam 0.5 MG TAB PO PRN (04:54)
[2021-12-01] MEDS ORDERED: Thiamine 100 MG TAB PO SCH (21:00)
[2021-12-06] MEDS ORDERED: Ergocalciferol 1.25 MG(50,000 UNITS) CAP PO SCH (09:00)
== END 2021-11-30 20:15 | DRG 896 ==
LOC: ERS 17:12 → T4-A 18:50 → IMCU/EMU 11-28 09:22 → CCU 11-30 18:43
PROVIDERS: ADMIT Internal Medicine; ATTEND Internal Medicine
DX: F10.229 Alcohol dependence with intoxication, unspecified (principal); E43 Unspecified severe protein-calorie malnutrition; E87.2 Acidosis; Z68.1 Body mass index [BMI] 19.9 or less, adult; E86.0 Dehydration; M47.812 Spondylosis without myelopathy or radiculopathy, cervical region; R53.1 Weakness; I08.1 Rheumatic disorders of both mitral and tricuspid valves; Y90.1 Blood alcohol level of 20-39 mg/100 ml; F17.210 Nicotine dependence, cigarettes, uncomplicated; R53.81 Other malaise; E87.6 Hypokalemia; D69.6 Thrombocytopenia, unspecified; R21 Rash and other nonspecific skin eruption; J44.9 Chronic obstructive pulmonary disease, unspecified; I10 Essential (primary) hypertension; N40.0 Benign prostatic hyperplasia without lower urinary tract symptoms; I65.23 Occlusion and stenosis of bilateral carotid arteries; K70.10 Alcoholic hepatitis without ascites; E55.9 Vitamin D deficiency, unspecified; D53.9 Nutritional anemia, unspecified; Z20.822 Contact with and (suspected) exposure to COVID-19; Z87.820 Personal history of traumatic brain injury; Z98.890 Other specified postprocedural states; Z91.81 History of falling; Z79.899 Other long term (current) drug therapy; Z86.718 Personal history of other venous thrombosis and embolism; Z86.711 Personal history of pulmonary embolism; Z71.41 Alcohol abuse counseling and surveillance of alcoholic
CPT/HCPCS: 36415; 70450; 71045; 72125; 80053; 80307; 81001; 82306; 82550; 82607; 82746; 83605; 83735; 83880; 84100; 84484; 85025; 85610; 85730; 86780; 86803; 87389; 93005; 93306; 93880; J3411; J3475; J3490; J7042; J7050; U0003; U0005

== ENCOUNTER 2022-01-29 12:11 | Inpatient (IN) | payer MEDICARE ==
[2022-01-29 12:56] LABS: #Basophils 0.1 thou/uL (0.0-0.2); #Lymphocytes 1.3 thou/uL (1.20-3.40); #Monocytes 0.2 thou/uL (0.11-0.59); #Neutrophils 2.9 thou/uL (1.40-6.50); %Basophils 1.4 % (0.0-1.0); %Lymphocytes 29.1 % (21.0-51.0); %Monocytes 3.8 % (0.0-10.0); %Neutrophils 64.8 % (42.0-75.0); Hemoglobin 11.1 g/dL (14.0-18.0); Mean Corpuscular Hemoglobin 25.6 pg (27.0-31.0); Mean Corpuscular Volume 82.6 fL (78.0-98.0); Mean Platelet Volume 11.6 fL (7.4-10.4); Platelet Count 164 thou/uL (130-400); RBC Distribution Width 15.3 % (11.5-14.5); Red Blood Cell (RBC) Count 4.33 mill/uL (4.70-6.10); White Blood Cell (WBC) Count 4.4 thou/uL (4.8-10.8)
[2022-01-29 13:29] LABS: ALT (SGPT) 10 U/L (8-55); AST (SGOT) 35 U/L (5-34); Albumin 3.3 g/dL (3.4-4.8); Alkaline Phosphatase 56 U/L (40-110); Anion Gap 25 mmol/L (10-20); BUN (Urea Nitrogen) 23 mg/dL (8.4-25.7); Bilirubin, Total 0.7 mg/dL (0.2-1.2); Calc. Creatinine Clearance 0 mL/min (70-130); Calcium 7.8 mg/dL (7.8-10.44); Carbon Dioxide 18 mmol/L (23-31); Chloride 95 mmol/L (98-107); Estimated GFR 94; Globulin 3.2 g/dL (2.4-3.5); Glucose 96 mg/dL (83-110); Potassium 3.7 mmol/L (3.5-5.1); Protein, Total 6.5 g/dL (5.8-8.1); Sodium 134 mmol/L (136-145)
[2022-01-29 13:57] LABS: CK (CPK) 50 U/L (30-200); Lipase 44 U/L (8-78); Magnesium 1.9 mg/dL (1.6-2.6)
[2022-01-29] MEDS ORDERED: Acetaminophen 500 MG TAB ONE (20:15)
[2022-01-29] MEDS ORDERED: Ondansetron PF 4 MG/2 ML Vial IVP PRN (21:21)
[2022-01-29] MEDS ORDERED: Dextrose 50% Abboject 50 ML SYRINGE SLOW IVP PRN (21:21)
[2022-01-29] MEDS ORDERED: Dextrose 5% in Water 1,000 ML IV PRN (21:21)
[2022-01-29] MEDS ORDERED: Ondansetron ODT 4 MG TAB PO PRN ×2 (21:21→21:35)
[2022-01-29 21:22] VITALS: BMI 20.3
[2022-01-29] MEDS ORDERED: Lorazepam 1 MG TAB PO PRN (21:35)
[2022-01-29] MEDS ORDERED: Lorazepam 2 MG/ML VIAL IM PRN (21:35)
[2022-01-29] MEDS ORDERED: Electrolyte Replacement Protocol 1 EACH FS SCH (21:45)
[2022-01-29] MEDS ORDERED: Benzonatate 100 MG CAP PO PRN (21:51)
[2022-01-29] MEDS ORDERED: Magnesium 2 GM/50 ML(in water) 2 GM in Premix Bag 1 BAG IVPB SCH (22:00)
[2022-01-29 22:39] LABS: Bilirubin, Direct 0.5 mg/dL (0.1-0.3); Iron 152 ug/dL (65-175); Iron Binding Capacity, Total 145 mcg/dL (261-462); Magnesium 2.1 mg/dL (1.6-2.6); Phosphorus 2.2 mg/dL (2.3-4.7)
[2022-01-29] MEDS: Thiamine HCl 200 MG/2 ML VIAL SLOW IVP SCH (22:42)
[2022-01-29] MEDS: Lorazepam 1 MG TAB PO SCH (22:42)
[2022-01-29] MEDS: Acetaminophen 325 MG TAB PO PRN (22:43)
[2022-01-29] MEDS: Nicotine 14 MG PATCH TD SCH (22:43)
[2022-01-29 22:44] LABS: Troponin I 0.016 ng/mL (< 0.028)
[2022-01-29 22:58] LABS: Ferritin 747.06 ng/mL (22-322); Thyroid Stimulating Hormone 1.8505 uIU/mL (0.35-4.94)
[2022-01-30] MEDS: Lorazepam 1 MG TAB PO SCH ×4 (04:06→21:05)
[2022-01-30 04:55] LABS: Amphetamine Not Detected (NotDetected); Barbiturates Screen Not Detected (NotDetected); Benzodiazepine Screen Not Detected (NotDetected); Cocaine Metabolite Screen Not Detected (NotDetected); Methadone Not Detected (NotDetected); Methamphetamine Not Detected (NotDetected); Opiate Screen Not Detected (NotDetected); Oxycodone Screen Not Detected (NotDetected); Phencyclidine (PCP) Not Detected (NotDetected); THC/Cannabinoid Screen Not Detected (NotDetected); Tricyclic Screen Not Detected (NotDetected)
[2022-01-30] MEDS: Acetaminophen 325 MG TAB PO PRN ×2 (06:14→10:43)
[2022-01-30 06:40] LABS: ALT (SGPT) 8 U/L (8-55); AST (SGOT) 27 U/L (5-34); Albumin 3.1 g/dL (3.4-4.8); Alkaline Phosphatase 66 U/L (40-110); Anion Gap 13 mmol/L (10-20); BUN (Urea Nitrogen) 21 mg/dL (8.4-25.7); Bilirubin, Total 1.5 mg/dL (0.2-1.2); Calc. Creatinine Clearance 68 mL/min (70-130); Calcium 8.3 mg/dL (7.8-10.44); Carbon Dioxide 28 mmol/L (23-31); Chloride 96 mmol/L (98-107); Estimated GFR 90; Globulin 3.2 g/dL (2.4-3.5); Glucose 140 mg/dL (83-110); Potassium 3.4 mmol/L (3.5-5.1); Protein, Total 6.3 g/dL (5.8-8.1); Sodium 134 mmol/L (136-145)
[2022-01-30 07:13] LABS: Hemoglobin 11.3 g/dL (14.0-18.0); Mean Corpuscular HGB CONC 31.3 g/dL (32.0-36.0); Mean Corpuscular Volume 83.2 fL (78.0-98.0); Mean Platelet Volume 6.4 fL (7.4-10.4); Platelet Count 156 thou/uL (130-400); RBC Distribution Width 15.6 % (11.5-14.5); Red Blood Cell (RBC) Count 4.32 mill/uL (4.70-6.10); White Blood Cell (WBC) Count 6.8 thou/uL (4.8-10.8)
[2022-01-30] MEDS: Folic Acid 1 MG TAB PO SCH (07:48)
[2022-01-30] MEDS: Multivit, Therapeutic 1 TAB PO SCH (07:48)
[2022-01-30] MEDS: Enoxaparin Sodium 40 MG/0.4 ML SYRINGE SC SCH (07:48)
[2022-01-30] MEDS ORDERED: Potassium Chloride 20 MEQ TAB PO SCH ×2 (08:15→08:45)
[2022-01-30 11:09] LABS: Syphilis Antibody Nonreactive (Nonreactive); Syphilis Antibody Index 0.09 S/CO (<1.00 Non-Reactive)
[2022-01-30 12:04] LABS: Band 9 % (5-11); Eosinophils 5 % (0-10); Hypochromia SLIGHT = 6-15 cells (100X) (0-5/hpf); Lymphocytes 32 % (21-51); MDiff Complete? YES; Monocytes 4 % (0-10); Neutrophil 46 % (42-75); Platelet Morphology Comment Appears Adequate; Polychromasia SLIGHT = 2-3 cells (100X) (0-2/hpf); Reactive Lymphocytes 4 % (0-10); Target Cells SLIGHT = 2-5 cells (100X) (0-1/hpf)
[2022-01-30] MEDS ORDERED: Loperamide HCl 2 MG CAP PO PRN (16:16)
[2022-01-30] MEDS: Thiamine HCl 200 MG/2 ML VIAL SLOW IVP SCH (21:05)
[2022-01-30] MEDS: Nicotine 14 MG PATCH TD SCH (21:05)
[2022-01-30] MEDS ORDERED: Lorazepam 1 MG TAB PO PRN (21:35)
[2022-01-31] MEDS: Lorazepam 1 MG TAB PO SCH ×3 (04:16→14:33)
[2022-01-31] MEDS: Folic Acid 1 MG TAB PO SCH (08:07)
[2022-01-31] MEDS: Enoxaparin Sodium 40 MG/0.4 ML SYRINGE SC SCH (08:07)
[2022-01-31] MEDS: Multivit, Therapeutic 1 TAB PO SCH (08:09)
[2022-01-31] MEDS ORDERED: Potassium Chloride 20 MEQ TAB PO SCH (14:00)
[2022-01-31 14:35] LABS: Anion Gap 13 mmol/L (10-20); BUN (Urea Nitrogen) 11 mg/dL (8.4-25.7); Calc. Creatinine Clearance 72 mL/min (70-130); Calcium 8.8 mg/dL (7.8-10.44); Carbon Dioxide 28 mmol/L (23-31); Chloride 100 mmol/L (98-107); Estimated GFR 91; Glucose 109 mg/dL (83-110); Potassium 4.1 mmol/L (3.5-5.1); Sodium 137 mmol/L (136-145)
[2022-01-31] MEDS: Nicotine 14 MG PATCH TD SCH (21:04)
[2022-01-31] MEDS: Thiamine HCl 200 MG/2 ML VIAL SLOW IVP SCH (21:05)
[2022-01-31] MEDS: Lorazepam 0.5 MG TAB PO SCH (21:20)
[2022-01-31] MEDS ORDERED: Lorazepam 1 MG TAB PO PRN (21:35)
[2022-02-01] MEDS: Lorazepam 0.5 MG TAB PO SCH ×3 (04:03→16:27)
[2022-02-01 06:09] LABS: Anion Gap 11 mmol/L (10-20); BUN (Urea Nitrogen) 11 mg/dL (8.4-25.7); Calc. Creatinine Clearance 78 mL/min (70-130); Carbon Dioxide 27 mmol/L (23-31); Chloride 104 mmol/L (98-107); Estimated GFR 93; Glucose 98 mg/dL (83-110); Potassium 3.5 mmol/L (3.5-5.1); Sodium 138 mmol/L (136-145)
[2022-02-01] MEDS: Multivit, Therapeutic 1 TAB PO SCH (08:51)
[2022-02-01] MEDS: Folic Acid 1 MG TAB PO SCH (08:51)
[2022-02-01] MEDS: Enoxaparin Sodium 40 MG/0.4 ML SYRINGE SC SCH (08:52)
[2022-02-01] MEDS: Thiamine 100 MG TAB PO SCH (08:54)
[2022-02-01] MEDS: Acetaminophen 325 MG TAB PO PRN (08:54)
[2022-02-01] MEDS ORDERED: Potassium Chloride 20 MEQ TAB PO SCH (09:00)
[2022-02-01] MEDS ORDERED: Lorazepam 0.5 MG TAB PO PRN (21:35)
[2022-02-01] MEDS: Nicotine 14 MG PATCH TD SCH (21:40)
[2022-02-02 06:12] LABS: Anion Gap 14 mmol/L (10-20); BUN (Urea Nitrogen) 14 mg/dL (8.4-25.7); Calc. Creatinine Clearance 71 mL/min (70-130); Calcium 9.1 mg/dL (7.8-10.44); Carbon Dioxide 20 mmol/L (23-31); Chloride 106 mmol/L (98-107); Estimated GFR 90; Glucose 94 mg/dL (83-110); Potassium 3.9 mmol/L (3.5-5.1); Sodium 136 mmol/L (136-145)
[2022-02-02] MEDS: Enoxaparin Sodium 40 MG/0.4 ML SYRINGE SC SCH (09:03)
[2022-02-02] MEDS: Multivit, Therapeutic 1 TAB PO SCH (09:04)
[2022-02-02] MEDS: Thiamine 100 MG TAB PO SCH (09:04)
[2022-02-02] MEDS: Folic Acid 1 MG TAB PO SCH (09:04)
[2022-02-02] MEDS: Nicotine 14 MG PATCH TD SCH (20:18)
[2022-02-02] MEDS: Acetaminophen 325 MG TAB PO PRN (23:04)
[2022-02-03 07:42] LABS: Anion Gap 13 mmol/L (10-20); BUN (Urea Nitrogen) 19 mg/dL (8.4-25.7); Calc. Creatinine Clearance 68 mL/min (70-130); Calcium 8.7 mg/dL (7.8-10.44); Carbon Dioxide 21 mmol/L (23-31); Chloride 106 mmol/L (98-107); Estimated GFR 90; Glucose 106 mg/dL (83-110); Potassium 3.6 mmol/L (3.5-5.1); Sodium 136 mmol/L (136-145)
[2022-02-03] MEDS: Multivit, Therapeutic 1 TAB PO SCH (09:44)
[2022-02-03] MEDS: Folic Acid 1 MG TAB PO SCH (09:44)
[2022-02-03] MEDS: Enoxaparin Sodium 40 MG/0.4 ML SYRINGE SC SCH (09:46)
[2022-02-03] MEDS: Thiamine 100 MG TAB PO SCH (09:51)
[2022-02-03] MEDS: Nicotine 14 MG PATCH TD SCH (20:57)
[2022-02-04 07:41] LABS: Anion Gap 11 mmol/L (10-20); BUN (Urea Nitrogen) 16 mg/dL (8.4-25.7); Calc. Creatinine Clearance 65 mL/min (70-130); Calcium 8.9 mg/dL (7.8-10.44); Carbon Dioxide 23 mmol/L (23-31); Chloride 108 mmol/L (98-107); Estimated GFR 88; Glucose 110 mg/dL (83-110); Potassium 3.7 mmol/L (3.5-5.1); Sodium 138 mmol/L (136-145)
[2022-02-04] MEDS: Multivit, Therapeutic 1 TAB PO SCH (09:11)
[2022-02-04] MEDS: Folic Acid 1 MG TAB PO SCH (09:11)
[2022-02-04] MEDS: Enoxaparin Sodium 40 MG/0.4 ML SYRINGE SC SCH (09:11)
[2022-02-04] MEDS: Thiamine 100 MG TAB PO SCH (09:13)
[2022-02-04] MEDS: Acetaminophen 325 MG TAB PO PRN (19:57)
[2022-02-04] MEDS: Nicotine 14 MG PATCH TD SCH (19:58)
[2022-02-04] MEDS: Naproxen 500 MG TAB PO SCH (20:09)
[2022-02-04] MEDS ORDERED: Allopurinol 100 MG TAB PO SCH (21:30)
[2022-02-05 06:44] LABS: Anion Gap 13 mmol/L (10-20); BUN (Urea Nitrogen) 15 mg/dL (8.4-25.7); Calc. Creatinine Clearance 64 mL/min (70-130); Calcium 8.6 mg/dL (7.8-10.44); Carbon Dioxide 23 mmol/L (23-31); Chloride 106 mmol/L (98-107); Estimated GFR 88; Glucose 89 mg/dL (83-110); Potassium 3.6 mmol/L (3.5-5.1); Sodium 138 mmol/L (136-145)
[2022-02-05 07:56] VITALS: BP 119/77; TEMP 97.7
[2022-02-05] MEDS ORDERED: Allopurinol 100 MG TAB PO SCH (09:00)
[2022-02-05] MEDS: Enoxaparin Sodium 40 MG/0.4 ML SYRINGE SC SCH (09:06)
[2022-02-05] MEDS: Folic Acid 1 MG TAB PO SCH (09:07)
[2022-02-05] MEDS: Naproxen 500 MG TAB PO SCH (09:07)
[2022-02-05] MEDS: Multivit, Therapeutic 1 TAB PO SCH (09:07)
[2022-02-05] MEDS: Thiamine 100 MG TAB PO SCH (09:07)
[2022-02-05] MEDS: Acetaminophen 325 MG TAB PO PRN (09:10)
== END 2022-02-05 16:55 | DRG 640 ==
LOC: ERS 12:11 → T4-A 17:14 → OBSVTOIN 01-31 10:39
PROVIDERS: ADMIT Internal Medicine; ATTEND Internal Medicine
DX: E16.2 Hypoglycemia, unspecified (principal); G93.41 Metabolic encephalopathy; E87.1 Hypo-osmolality and hyponatremia; Z20.822 Contact with and (suspected) exposure to COVID-19; M79.661 Pain in right lower leg; E87.6 Hypokalemia; F17.210 Nicotine dependence, cigarettes, uncomplicated; R19.7 Diarrhea, unspecified; F10.20 Alcohol dependence, uncomplicated; M10.9 Gout, unspecified; I95.9 Hypotension, unspecified; Z86.711 Personal history of pulmonary embolism; I25.2 Old myocardial infarction; Z79.82 Long term (current) use of aspirin; Z79.899 Other long term (current) drug therapy; Z98.890 Other specified postprocedural states; Z28.311 Partially vaccinated for COVID-19; Z86.73 Personal history of transient ischemic attack (TIA), and cerebral infarction without residual deficits
CPT/HCPCS: 36415; 36416; 71045; 80048; 80053; 80306; 82248; 82274; 82550; 82607; 82728; 83540; 83550; 83690; 83735; 84100; 84443; 84484; 85025; 86780; 87324; 87449; 93005; 94640; 96372; 96374; 96375; 96376; G0378; J1650; J3411; J3475; J7620; U0003; U0005

== ENCOUNTER 2022-05-28 15:32 | Emergency (ER) | payer MEDICARE ==
[2022-05-28] MEDS ORDERED: Acetaminophen 500 MG TAB ONE (15:59)
[2022-05-28 16:13] LABS: Bacteria/HPF None Seen HPF (None Seen); Bilirubin 2+ (Negative); Blood, Urine 1+ (Negative); Clarity Turbid (Clear); Glucose, Urine (Dipstick) Normal (Negative); Ketone, Urine 60 mg/dL (Negative); Leukocyte Negative Leu/uL (Negative); Nitrite Negative (Negative); Protein, Urine (Dipstick) 70 mg/dL (Neg-Trace); Specific Gravity, Urine 1.023 (1.002-1.036); Squamous Epithelial 0-3 HPF (0-3); WBC/HPF 0-3 HPF (0-3)
[2022-05-28 16:40] LABS: SARS-CoV-2 NAA Rapid Test Not Detected (NotDetected)
[2022-05-28 16:52] LABS: #Lymphocytes 1.5 thou/uL (1.20-3.40); #Neutrophils 5.7 thou/uL (1.40-6.50); %Basophils 0.6 % (0.0-1.0); %Eosinophils 0.4 % (0.0-10.0); %Lymphocytes 17.8 % (21.0-51.0); %Monocytes 11.7 % (0.0-10.0); %Neutrophils 69.6 % (42.0-75.0); Hemoglobin 10.8 g/dL (14.0-18.0); Mean Corpuscular HGB CONC 31.8 g/dL (32.0-36.0); Mean Corpuscular Volume 84.8 fl (78.0-98.0); Mean Platelet Volume 10.8 fL (7.4-10.4); Platelet Count 155 10x3/uL (130-400); RBC Distribution Width 16.3 % (11.5-14.5); White Blood Cell (WBC) Count 8.2 10x3/uL (4.8-10.8)
[2022-05-28 17:13] LABS: ALT (SGPT) 38 U/L (8-55); AST (SGOT) 65 U/L (5-34); Albumin 3.6 g/dL (3.4-4.8); Alkaline Phosphatase 72 U/L (40-110); Anion Gap 21 mmol/L (10-20); BUN (Urea Nitrogen) 25 mg/dL (8.4-25.7); Bilirubin, Total 1.1 mg/dL (0.2-1.2); Calc. Creatinine Clearance 0 mL/min (70-130); Calcium 9.1 mg/dL (7.8-10.44); Carbon Dioxide 21 mmol/L (23-31); Chloride 97 mmol/L (98-107); Estimated GFR 58; Globulin 3.7 g/dL (2.4-3.5); Glucose 85 mg/dL (83-110); Potassium 3.6 mmol/L (3.5-5.1); Protein, Total 7.3 g/dL (5.8-8.1); Sodium 135 mmol/L (136-145)
[2022-05-28] MEDS ORDERED: cefTRIAXone\\ROCEPHIN 1 GM VIAL ONE (18:21)
[2022-05-28] MEDS ORDERED: Albuterol 200 PUFF (6.7GM INHALER) ONE (19:16)
== END 2022-05-28 20:09 ==
LOC: ERS 15:32
DX: M54.50 Low back pain, unspecified (principal); F17.210 Nicotine dependence, cigarettes, uncomplicated; Z86.73 Personal history of transient ischemic attack (TIA), and cerebral infarction without residual deficits; Z20.822 Contact with and (suspected) exposure to COVID-19; W19.XXXA Unspecified fall, initial encounter; Y92.009 Unspecified place in unspecified non-institutional (private) residence as the place of occurrence of the external cause
CPT/HCPCS: 72100; 72170; 72220; 80053; 85025; 87086; U0002; 36415; 51701; 81003; 81015; 96374; J0696